=== PATIENT | male | born 1935 | race Caucasian/White ===

== ENCOUNTER 2020-12-29 21:53 | Outpatient (CLI) | payer MEDICARE | END 2020-12-29 21:54 | disposition critical access hospital (66) | LOC: EMS 21:53 | PROVIDERS: ATTEND Emergency Medicine | DX: S09.90XA Unspecified injury of head, initial encounter (principal); W01.198A Fall on same level from slipping, tripping and stumbling with subsequent striking against other object, initial encounter; Y92.10 Unspecified residential institution as the place of occurrence of the external cause | CPT/HCPCS: A0425; A0429 ==

== ENCOUNTER 2020-12-29 22:09 | Emergency (ER) | payer MEDICARE ==
--- NOTE | 2020-12-29 22:26 | ED Physician Documentation ---
PD HPI HEAD INJURY - Stated complaint Stated Complaint: GLF, HIT HEAD, HEADACHE AND NECK PAIN - History obtained from History obtained from: Patient - History of Present Illness Mechanism of head injury: Fell Where head injury occurred: Home Timing - onset: Today Location of injury: Back Quality of pain: Pain Associated symptoms: No: LOC, AMS Symptoms improve with: Rest Symptoms worsen with: Palpation, Movement Contributing factors: No: Anticoagulated Similar symptoms before: Has not had sx before Recently seen: Not recently seen - Additional information Additional information: 85 y/o male in memory care has had a fall and has an abrasion to the back of his scalp. His complaint this evening is ear pain because the cervical collar is pinching his ears. He does not feel ill otherwise. Review of Systems Unable to obtain: Dementia Constitutional: denies: Fever Ears: reports: Ear pain Nose: denies: Congestion Respiratory: denies: Cough GI: denies: Vomiting PD ED PE NORMAL - Vitals Vital signs reviewed: Yes (tachy and hypertensive) - General General: Well developed/nourished, Other (The patient is in a hard collar that is fitting crocked and bothering him. ) - HEENT HEENT: PERRL, EOMI, Other (There is abrasion to the occipital scalp. This does not seem to bother the patient much but touchiing the ear he gives a good yelp. Nothing is wrong with the ear. just the collar. 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 No acute fracture. 2. Multilevel severe spondylosis 3. hypertrophic synovium/pannus and inflammatory/erosive changes involving the posterior aspect of the odontoid process and the right lateral mass of C1. Findings suspicious for rheumatoid arthritis.), EMP read indepedently, See rad report CT head without contrast Radiology: Prelim report reviewed (Impression: One. Moderate atrophy. No acute intracranial findings. 2. High right posterior parietal scalp mild soft tissue swelling without underlying fracture.), EMP read indepedently, See rad report PD MEDICAL DECISION MAKING - ED course Complexity details: reviewed results, re-evaluated patient, considered differential, d/w patient ED course: 85-year-old male with advanced dementia has had a fall and abraded the back of his head. He arrives to the emergency department with a c-collar in place that is poorly fitting and most of his complaints have to do with the c-collar. He is unable to focus on anything else on the exam except the pain in his ear which is being pinched by the collar. This is removed and the patient appears to be able to move his neck. Departure - Departure Disposition: 01 Home, Self Care Clinical Impression: Scalp abrasion, non-infected Dementia with behavioral problem Qualifiers: Dementia type: Alzheimer's Alzheimer's disease onset: unspecified onset Qualified Code(s): G30.9 - Alzheimer's disease, unspecified Cervical strain, acute Qualifiers: Encounter type: initial encounter Qualified Code(s): S16.1XXA - Strain of muscle, fascia and tendon at neck level, initial encounter Condition: Stable Instructions: ED Abrasion, ED Sprain Strain Neck Follow-Up: LEAH JORDAN ARNP [Primary Care Provider] - Discharge Date/Time: 12/30/20 01:58
[2020-12-29 22:34] VITALS: BP 196/121
--- NOTE | 2020-12-30 08:28 | CT Report ---
PROCEDURE: CERVICAL SPINE WO INDICATIONS: polytrauma TECHNIQUE: Noncontrast 3 mm thick sections acquired from the skull base to the T4 level. Sagittal and coronal r eformats were then constructed. For radiation dose reduction, the following was used: automated exp osure control, adjustment of mA and/or kV according to patient size. COMPARISON: None. FINDINGS: Image quality: Excellent. Bones: No fractures or dislocations. Decreased intervertebral disc space and degenerative endplate c hanges are noted throughout cervical spine with straightening of normal cervical lordosis. Bilateral facet hypertrophic changes also seen. Visualized superior ribs are intact. Soft tissues: Prevertebral soft tissues are normal in thickness. No paravertebral hematomas. No ap ical pneumothoraces. Prominent pannus at C1-2 level with posterior odontoid process lytic area and c ortical erosion. Lytic area is seen extending to involve medial aspect of right lateral mass of C1. IMPRESSION: 1. No acute cervical spine fracture or dislocation. 2. Degenerative disc disease throughout cervical spine. 3. Hypertrophic synovium/pannus and inflammatory/erosive changes involving posterior aspect of odonto id process as described above, suspicious for inflammatory arthropathy such as rheumatoid arthritis. No discrepancies from preliminary reading. Reviewed by: Kameron Bedolla MD on 12/30/2020 8:26 AM PST Approved by: Kameron Bedolla MD on 12/30/2020 8:26 AM PST Station ID: [id number]
--- NOTE | 2020-12-30 08:33 | CT Report ---
PROCEDURE: HEAD WO INDICATIONS: polytrauma TECHNIQUE: Noncontrast 4.5 mm thick angled axial sections acquired from the foramen magnum to the vertex. For r adiation dose reduction, the following was used: automated exposure control, adjustment of mA and/or kV according to patient size. COMPARISON: None. FINDINGS: Image quality: Excellent. CSF spaces: Basal cisterns are patent. No extra-axial fluid collections. The ventricles are symmet suyapa in size and shape. Brain: No intracranial bleeds or masses. There is cerebral volume loss for age, with resultant vent ricular and sulcal prominence. There are periventricular and deep white matter chronic small vessel ischemic changes. There is intracranial internal carotid artery atherosclerosis. Skull and face: Mild left posterior high parietal scalp swelling is seen. Calvarium and visualized f acial bones appear intact, without suspicious lesions. Sinuses: Visualized sinuses and mastoids are clear. IMPRESSION: 1. No CT evidence of acute intracranial pathology. 2. No gross acute skull fracture. Mild left posterior high parietal scalp swelling. No significant discrepancies from preliminary reading. Reviewed by: Kameron Bedolla MD on 12/30/2020 8:31 AM PST Approved by: Kameron Bedolla MD on 12/30/2020 8:31 AM PST Station ID: [id number]
== END 2020-12-30 01:58 | disposition home or self-care (01) ==
LOC: SUPCPDRO 22:09 → ED 22:09
DX: S00.01XA Abrasion of scalp, initial encounter (principal); S16.1XXA Strain of muscle, fascia and tendon at neck level, initial encounter; W18.30XA Fall on same level, unspecified, initial encounter; Y92.129 Unspecified place in nursing home as the place of occurrence of the external cause; G30.9 Alzheimer's disease, unspecified; F02.80 Dementia in other diseases classified elsewhere, unspecified severity, without behavioral disturbance, psychotic disturbance, mood disturbance, and anxiety; M50.30 Other cervical disc degeneration, unspecified cervical region
CPT/HCPCS: 99283; 99284

== ENCOUNTER 2020-12-30 02:01 | Outpatient (CLI) | payer MEDICARE | END 2020-12-30 02:02 | disposition home or self-care (01) | LOC: EMS 02:01 | PROVIDERS: ATTEND Emergency Medicine | DX: F03.91 Unspecified dementia, unspecified severity, with behavioral disturbance (principal) | CPT/HCPCS: A0425; A0428 ==

== ENCOUNTER 2021-07-09 16:39 | Outpatient (CLI) | payer MEDICARE, OTHER | END 2021-07-09 16:40 | disposition critical access hospital (66) | LOC: EMS 16:39 | DX: Z04.3 Encounter for examination and observation following other accident (principal); M79.604 Pain in right leg | CPT/HCPCS: A0425; A0429 ==

== ENCOUNTER 2021-07-09 16:56 | Emergency (ER) | payer MEDICARE, OTHER ==
[2021-07-09 17:12] VITALS: BP 147/92
--- NOTE | 2021-07-09 17:19 | ED Physician Documentation ---
PD HPI Fall - Stated complaint Stated Complaint: GLF - Chief complaint Chief Complaint: General - History obtained from History obtained from: Patient, EMS - Additional information Additional information: 85yo demented male from [facility] by EMS fell to knees. Hx afib. Not much hx from patient, but denies pain. Review of Systems Unable to obtain: Dementia PD PAST MEDICAL HISTORY - Past Medical History Psych: Anxiety - Present Medications Home Medications: Ambulatory Orders Medication Instructions Recorded Confirmed Acetaminophen [Tylenol] 650 mg PO TID 07/09/21 07/09/21 Ferrous Sulfate 325 mg PO DAILY 07/09/21 07/09/21 Sertraline [Zoloft] 1 tab PO DAILY 07/09/21 07/09/21 - Allergies Allergies/Adverse Reactions: Allergies Allergy/AdvReac Type Severity Reaction Status Date / Time No Known Drug Allergies Allergy Verified 07/09/21 17:12 - Social History Does the pt smoke?: No Smoking Status: Never smoker Does the pt drink ETOH?: No Does the pt have substance abuse?: No - Immunizations Immunizations are current?: Yes - POLST Patient has POLST: No PD ED PE NORMAL - Vitals Vital signs reviewed: Yes - General General: Other (A/O x 1) - HEENT HEENT: PERRL, EOMI - Neck Neck: Supple, no meningeal sign, No bony TTP - Cardiac Cardiac: RRR, No murmur - Respiratory Respiratory: No respiratory distress, Clear bilaterally - Abdomen Abdomen: Non tender - Back Back: No CVA TTP, No spinal TTP - Derm Derm: Normal color, Warm and dry - Extremities Extremities: Other (Small abrasion right knee, no deformity or tenderness over the hip but does complain of pain when hip is rotated especially externally.) - 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 There is an abrasion on the knee and he does have some pain with hip rotation. X-ray demonstrates a prosthetic in place without evidence of fracture. He was ambulatory without issue after the x-ray. Departure - Departure Disposition: 01 Home, Self Care Clinical Impression: Contusion, hip Qualifiers: Encounter type: initial encounter Laterality: right Qualified Code(s): S70.01XA - Contusion of right hip, initial encounter Knee abrasion Qualifiers: Encounter type: initial encounter Laterality: right Qualified Code(s): S80.211A - Abrasion, right knee, initial encounter Condition: Good Record reviewed to determine appropriate education?: Yes Instructions: ED Contusion Hip Comments: He is of course welcome to return for new or worsening symptoms.
--- NOTE | 2021-07-09 17:56 | XRAY Report ---
PROCEDURE: Hip w/Pelvis 2-3V RT INDICATIONS: hip injury TECHNIQUE: AP pelvis with lateral view(s) of the bilateral hip(s). COMPARISON: None. FINDINGS: Bones: No fractures or dislocations. Pelvic ring appears intact. Bilateral hip replacements are pr esent. No suspicious bony lesions. No lucency surrounding the hardware to suggest loosening. Extensiv e heterotopic bone formation around the hip joint is seen. Cystic changes are noted surrounding the l eft acetabular component. Soft tissues: The visualized bowel gas pattern is normal. No suspicious s oft tissue calcifications. IMPRESSION: 1. 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 No acute abnormality. Reviewed by: Olaf Medrano on 07/09/2021 5:54 PM PDT Approved by: Olaf Medrano on 07/09/2021 5:54 PM PDT Station ID: [id number]
== END 2021-07-09 19:47 | disposition home or self-care (01) ==
LOC: EDUNIT# → ED 16:56
DX: S80.211A Abrasion, right knee, initial encounter (principal); S70.01XA Contusion of right hip, initial encounter; W18.30XA Fall on same level, unspecified, initial encounter; Y92.199 Unspecified place in other specified residential institution as the place of occurrence of the external cause
CPT/HCPCS: 99283

== ENCOUNTER 2021-11-09 15:51 | Outpatient (CLI) | payer MEDICARE, OTHER | END 2021-11-09 15:52 | disposition short-term general hospital (02) | LOC: EMS 15:51 | DX: Z04.3 Encounter for examination and observation following other accident (principal); M25.512 Pain in left shoulder | CPT/HCPCS: A0425; A0429 ==

== ENCOUNTER 2022-02-04 05:14 | Outpatient (CLI) | payer MEDICARE, OTHER | END 2022-02-04 05:15 | disposition critical access hospital (66) | LOC: EMS 05:14 | DX: S01.01XA Laceration without foreign body of scalp, initial encounter (principal); M54.9 Dorsalgia, unspecified; W19.XXXA Unspecified fall, initial encounter; Y92.092 Bedroom in other non-institutional residence as the place of occurrence of the external cause | CPT/HCPCS: A0425; A0429 ==

== ENCOUNTER 2022-02-04 05:32 | Emergency (ER) | payer MEDICARE, OTHER ==
[2022-02-04] MEDS ORDERED: BUPIVACAINE 0.5% PF 10 ML VIAL SUBQ STA (05:53)
--- OUTSIDE RECORDS SUMMARY | 2022-02-04 05:54 | EXTERNAL MEDICAL SUMMARY RPT | Continuity of Care Document ---
:1935 Author Organization [facility] Address [address] [place] [address] Phone Care Team Providers Name Role Phone Fransisco Hanson Unavailable Unavailable Allergies No information. Encounters No information. Medications date description facility 20211109 Acetaminophen 325 MG / Hydrocodone Adore rtrate 5 MG Oral [facility] Tablet Problems date description facility 20211109 Pain in left shoulder [facility] Procedures date description facility 20211109 General Physician [facility] Results No information. Vital Signs date measurement value source 20211109 weight_standard 179.99 lb 20211109 weight_metric 81.64 kg 20211109 temperature_standard 97.3 F 20211109 temperature_metric 36.28 C 20211109 respiration_rate 18 /min 20211109 heart_rate 78 /min 20211109 BP_systolic 145 mm[Hg] 20211109 BP_diastolic 78 mm[Hg]
--- NOTE | 2022-02-04 07:07 | ED Physician Documentation ---
PD HPI HEAD INJURY - Stated complaint Stated Complaint: FELL OUT OF BED, HEAD LAC - Chief complaint Chief Complaint: Trauma Hd/Nk - History obtained from History obtained from: EMS - Additional information Additional information: Patient is an 86-year-old male from a memory care facility with a history significant for dementia who sustained an unwitnessed fall with head injury. Patient was found down on the ground next to his bed with a scalp laceration. He is not on any blood thinners. Patient cannot recall any events regarding his fall and not able to provide any meaningful history. He has had previous ED visits for similar presentations. Review of Systems Unable to obtain: Dementia PD PAST MEDICAL HISTORY - Past Medical History Cardiovascular: Atrial fibrillation Neuro: Dementia Psych: Depression, Anxiety - Present Medications Home Medications: Ambulatory Orders Medication Instructions Recorded Confirmed Acetaminophen [Tylenol] 650 mg PO TID 07/09/21 07/09/21 Ferrous Sulfate 325 mg PO DAILY 07/09/21 07/09/21 Sertraline [Zoloft] 1 tab PO DAILY 07/09/21 07/09/21 - Allergies Allergies/Adverse Reactions: Allergies Allergy/AdvReac Type Severity Reaction Status Date / Time No Known Drug Allergies Allergy Verified 07/09/21 17:12 - Social History Does the pt smoke?: No Smoking Status: Never smoker Does the pt drink ETOH?: No Does the pt have substance abuse?: No - Immunizations Immunizations are current?: Yes - POLST Patient has POLST: No PD ED PE NORMAL - General General: No acute distress, Well developed/nourished. No: Alert and oriented X 3 (Alert and oriented to person and place) - HEENT HEENT: PERRL, EOMI, Other (2.5 cm posterior scalp laceration) - Neck Neck: Supple, no meningeal sign, No bony TTP. 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, No motor deficit, No sensory deficit, Normal speech Eye Opening: Spontaneous Motor: Obeys Commands Verbal: Oriented GCS Score: 15 Results - Vitals Vitals: Vital Signs - 24 hr 02/04/22 02/04/22 02/04/22 05:36 07:43 09:22 Temperature 36.8 C 36.5 C Heart Rate 100 83 75 Respiratory 16 16 18 Rate Blood Pressure 122/70 137/72 H 126/75 O2 Saturation 99 100 97 Oxygen O2 Source Room air Procedures - Laceration (location) SCalp Length in cm: 2.5 Wound type: Linear Neurovascular status: Sensory intact, Motor intact Anesthesia: Marcaine 0.5% Wound preparation: Hibiclens, Irrigated copiously NS Skin layer closure: Elisha (7) Other: Patient tolerated well, No complications, Tetanus UTD (2015) PD MEDICAL DECISION MAKING - ED course ED course: Pt with dementia with unwitnessed fall and injury to scalp. CT head and cspine negative for acute process. Wound cleaned and stapled. Pt ambulatory and appears at baseline with no complaints and stable vital signs. 0759 - Pt ambulated steadily with walker. Departure - Departure Disposition: 01 Home, Self Care Clinical Impression: Fall at custodial Qualifiers: Encounter type: initial encounter Qualified Code(s): W19.XXXA - Unspecified fall, initial encounter Head injury Qualifiers: Encounter type: initial encounter Qualified Code(s): S09.90XA - Unspecified injury of head, initial encounter Scalp laceration Qualifiers: Encounter type: initial encounter Qualified Code(s): S01.01XA - Laceration without foreign body of scalp, initial encounter Condition: Stable Instructions: ED Head Injury Closed, ED Laceration Scalp Stitch Or Stap, ED Prevention Fall Comments: You were evaluated after an unwitnessed fall today. You sustained an injury to the back of your head with a large cut. This cut was repaired with elisha. There were 7 elisha placed and they should stay in for 1 week. You should then follow-up with your primary care doctor next SundayFebruary 10 to have the elisha removed. Please keep this area clean and dry. You can shower and use soap to the area but do not scrub where the wound is. Discharge Date/Time: 02/04/22 10:58
[2022-02-04 09:23] VITALS: BP 126/75
--- NOTE | 2022-02-04 10:24 | CT Report ---
PROCEDURE: HEAD WO INDICATIONS: head injury/dementia TECHNIQUE: Noncontrast 4.5 mm thick angled axial sections acquired from the foramen magnum to the vertex. For r adiation dose reduction, the following was used: automated exposure control, adjustment of mA and/or kV according to patient size. COMPARISON: 12/30/2020. Correlation is made with the accompanying cervical spine CT, 02/04/2022. FINDINGS: Image quality: Excellent. CSF spaces: Basal cisterns are patent. No extra-axial fluid collections. Ventricles are normal in size and shape. Brain: No midline shift. No intracranial masses or hemorrhage. Collins-white matter interface is norm al. Skull and face: Calvarium and visualized facial bones are intact, without suspicious lesions. Sinuses: Visualized sinuses and mastoids are clear. IMPRESSION: Unremarkable intracranial study for age, without acute hemorrhage. Note: No significant discrepancy from the preliminary report. Reviewed by: Luciano Seaman MD on 02/04/2022 9:23 AM MARI[facility] Approved by: Luciano Seaman MD on 02/04/2022 9:23 AM MAR[facility]AMA Station ID: [id number]
--- NOTE | 2022-02-04 10:27 | CT Report ---
PROCEDURE: CERVICAL SPINE WO INDICATIONS: head injury/dementia TECHNIQUE: Noncontrast 3 mm thick sections acquired from the skull base to the T4 level. Sagittal and coronal r eformats were then constructed. For radiation dose reduction, the following was used: automated exp osure control, adjustment of mA and/or kV according to patient size. COMPARISON: 12/30/2020. Correlation is also made with the accompanying head CT, 02/04/2022. FINDINGS: Image quality: Excellent. Bones: No fractures or dislocations. Visualized superior ribs are intact. Relatively prominent degenerative changes are seen throughout. There is focal degenerative change wit h remodeling involving the C1-C2 interface anteriorly. Areas of bony erosion are again seen involving the dens. There is moderate to severe disc space narrowing at C3-C4, C4-C5, C5-C6, C6-C7, and C7-T1. Relatively prominent degenerative changes seen involving the visualized upper thoracic spine. A degree of diffuse osteophytes can be seen at each cervical level. Soft tissues: Prevertebral soft tissues are normal in thickness. No paravertebral hematomas. No ap ical pneumothoraces. IMPRESSION: No acute fracture can be seen. Advanced cervical spine degenerative changes are seen, the degrees of fusion. Areas of bony erosion are seen involving the dens. These correlate with an inflammatory process, such as rheumatoid arthritis. Note: No significant discrepancy from the preliminary report. Reviewed by: Luciano Seaman MD on 02/04/2022 9:26 AM [facility] Approved by: Luciano Seaman MD on 02/04/2022 9:26 AM MARI[facility] Station ID: [id number]
== END 2022-02-04 10:58 | disposition home or self-care (01) ==
LOC: EDUNIT# → EDBD → ED 05:32
DX: S01.01XA Laceration without foreign body of scalp, initial encounter (principal); S09.90XA Unspecified injury of head, initial encounter; W19.XXXA Unspecified fall, initial encounter; Y92.193 Bedroom in other specified residential institution as the place of occurrence of the external cause; F03.90 Unspecified dementia, unspecified severity, without behavioral disturbance, psychotic disturbance, mood disturbance, and anxiety
CPT/HCPCS: 12001; 99284

== ENCOUNTER 2022-02-04 10:53 | Outpatient (CLI) | payer MEDICARE, OTHER | END 2022-02-04 10:54 | disposition home or self-care (01) | LOC: EMS 10:53 | PROVIDERS: ATTEND Emergency Medicine | DX: R41.0 Disorientation, unspecified (principal); S01.01XA Laceration without foreign body of scalp, initial encounter; W19.XXXA Unspecified fall, initial encounter | CPT/HCPCS: A0425; A0428 ==

== ENCOUNTER 2022-02-06 17:28 | Outpatient (CLI) | payer MEDICARE, OTHER | END 2022-02-06 17:29 | disposition critical access hospital (66) | LOC: EMS 17:28 | DX: R41.0 Disorientation, unspecified (principal); M25.562 Pain in left knee | CPT/HCPCS: A0425; A0429 ==

== ENCOUNTER 2022-02-06 17:47 | Emergency (ER) | payer MEDICARE, OTHER ==
--- OUTSIDE RECORDS SUMMARY | 2022-02-06 18:12 | EXTERNAL MEDICAL SUMMARY RPT | Continuity of Care Document ---
:1935 Author Organization [facility] Address [address] [place] [address] Phone Care Team Providers Name Role Phone Valentin Unavailable Unavailable Allergies No information. Encounters No information. Medications date description facility 20211109 Acetaminophen 325 MG / Hydrocodone Adore rtrate 5 MG Oral [facility] Tablet Problems date description facility 20211109 Pain in left shoulder [facility] Procedures date description facility 20211109 General Physician [facility] Results No information. Vital Signs date measurement value source 20211109 weight_standard 179.99 lb 20211109 weight_metric 81.64 kg 20211109 temperature_standard 97.3 F 20211109 temperature_metric 36.28 C 20211109 respiration_rate 18 /min 20211109 heart_rate 78 /min 20211109 BP_systolic 145 mm[Hg] 20211109 BP_diastolic 78 mm[Hg]
--- NOTE | 2022-02-06 18:16 | ED Physician Documentation ---
History of Present Illness - Stated complaint Stated Complaint: AMS - Chief complaint Chief Complaint: Neuro - History obtained from History obtained from: EMS - History of Present Illness Timing: Today Pain level max: 0 Pain level now: 0 - Additonal information Additional information: 86-year-old male, significant dementia presents with "more altered than usual" mental status. EMS is unable to say how he is more altered than usual. The patient has no complaints. Reportedly there was a fall on Sunday. No fevers reported. No vomiting. No pain reported. Patient unable to give any history Review of Systems Unable to obtain: Dementia PD PAST MEDICAL HISTORY - Past Medical History Cardiovascular: Atrial fibrillation Neuro: Dementia Psych: Depression, Anxiety - Present Medications Home Medications: Ambulatory Orders Medication Instructions Recorded Confirmed Acetaminophen [Tylenol] 650 mg PO TID 07/09/21 07/09/21 Ferrous Sulfate 325 mg PO DAILY 07/09/21 07/09/21 Sertraline [Zoloft] 1 tab PO DAILY 07/09/21 07/09/21 cephALEXin [Keflex] 500 mg PO Q6H #20 cap 02/06/22 - Allergies Allergies/Adverse Reactions: Allergies Allergy/AdvReac Type Severity Reaction Status Date / Time No Known Drug Allergies Allergy Verified 02/06/22 17:54 - Social History Does the pt smoke?: No Smoking Status: Never smoker Does the pt drink ETOH?: No Does the pt have substance abuse?: No - Immunizations Immunizations are current?: Yes - POLST Patient has POLST: No PD ED PE NORMAL - Vitals Vital signs reviewed: Yes - General General: No acute distress, Well developed/nourished, Other (alert, pleasant, disoriented to place and time.) - HEENT HEENT: Atraumatic, PERRL, Moist mucous membranes - Neck Neck: Supple, no meningeal sign - Cardiac Cardiac: RRR - Respiratory Respiratory: No respiratory distress, Clear bilaterally - Abdomen Abdomen: Soft, Non tender, Non distended - Derm Derm: Warm and dry - Extremities Extremities: Normal ROM s pain - Neuro Neuro: Other (alert) Results - Vitals Vitals: Vital Signs - 24 hr 02/06/22 02/06/22 02/06/22 17:54 17:58 19:58 Temperature 36.6 C 36.6 C 36.5 C Heart Rate 88 88 88 Respiratory 16 16 16 Rate Blood Pressure 118/79 118/79 120/80 O2 Saturation 96 96 96 02/06/22 20:51 Temperature 36.4 C L Heart Rate 109 H Respiratory 18 Rate Blood Pressure 117/78 O2 Saturation 92 Oxygen O2 Source Room air - Labs Labs: Laboratory Tests 02/06/22 02/06/22 02/06/22 18:12 18:12 19:39 WBC 12.1 H RBC 3.47 L Hgb 10.9 L Hct 33.5 L MCV 96.5 H MCH 31.4 H MCHC 32.5 RDW 14.4 Plt Count 89 L MPV 11.2 Neut # (Auto) Not Reportable Lymph # (Auto) Not Reportable [place] # (Auto) Not Reportable Eos # (Auto) Not Reportable Baso # (Auto) Not Reportable Absolute Nucleated RBC Not Reportable Total Counted 100 Band Neuts % (Manual) 5 Abnorm Lymph % (Manual) 0 Nucleated RBC % Not Reportable Neutrophils # (Manual) 10.8 H Lymphocytes # (Manual) 0.7 L Monocytes # (Manual) 0.6 Eosinophils # (Manual) 0.0 Basophils # (Manual) 0.0 Differential Comment MANUAL DIFFERENTIAL WBC Morphology NORMAL APPEARANCE Platelet Estimate DECREASED (<130,000) Platelet Morphology NORMAL APPEARANCE RBC Morph Micro Appear NORMAL APPEARANCE Sodium 138 Potassium 3.6 Chloride 101 Carbon Dioxide 24 Anion Gap 13.0 BUN 52 H Creatinine 1.9 H Estimated GFR (MDRD) 34 L Glucose 146 H Calcium 8.9 Total Bilirubin 1.6 H AST 89 H ALT 61 H Alkaline Phosphatase 111 Total Protein 7.3 Albumin 3.7 Globulin 3.6 Albumin/Globulin Ratio 1.0 Lipase 30 Urine Color DARK YELLOW Urine Clarity HAZY Urine pH 6.0 Ur Specific [place] 1.025 Urine Protein 100 H Urine Glucose (UA) NEGATIVE Urine Ketones TRACE Urine Occult Blood MODERATE H Urine Nitrite POSITIVE H Urine Bilirubin NEGATIVE Urine Urobilinogen 2 H Ur Leukocyte Esterase NEGATIVE Urine RBC 6-10 H Urine WBC 0-3 Ur Squamous Epith Cells FEW Squamous Amorphous Sediment Few Urine Bacteria Rare Ur Microscopic Review INDICATED Urine Culture Comments INDICATED - Rads (name of study) head Ct Radiology: Final report received, EMP read contemporaneously, See rad report (no acute abnormalities) PD MEDICAL DECISION MAKING - ED course Complexity details: reviewed results, re-evaluated patient, considered differential ED course: No acute findings on head CT. He does have some renal insufficiency, thrombocytopenia and what appears to be a UTI. Unclear what his normal baseline lab values are. He is unable to give any history. We have no baseline laboratory testing on him. We will treat for UTI. He was also given IV fluids. I will follow-up with his doctor for further care. This document was made in part using voice recognition software. While efforts are made to proofread this document, sound alike and grammatical errors may occur. Departure - Departure Disposition: Home, Self Care Clinical Impression: Dehydration Dementia Qualifiers: Dementia type: unspecified type Dementia behavioral disturbance: without behavioral disturbance Qualified Code(s): F03.90 - Unspecified dementia without behavioral disturbance UTI (urinary tract infection) Qualifiers: Urinary tract infection type: acute cystitis Hematuria presence: without hematuria Qualified Code(s): N30.00 - Acute cystitis without hematuria Condition: Good Instructions: ED Dehydration, ED UTI Cystitis Male Follow-Up: your,doctor in 3 days [Other] Prescriptions: cephALEXin [Keflex] 500 mg PO Q6H #20 cap Comments: Your prescription was sent to [facility] in [place]. Take all anitbiotics until gone. return if you worsen. You should follow up with your doctor to recheck your labs as well. You have a mild thrombocytopenia mild uremia, renal insufficiency, mild elevation of your liver function tests. We do not have any old lab tests on you, so do not know your baseline values. Your head CT does not show any acute abnormalities today. Discharge Date/Time: 02/06/22 21:00
[2022-02-06 18:19] LABS: BASOPHILS % (AUTO) 0.2 %; HCT - HEMATOCRIT 33.5 % (42.0-52.0); HGB - HEMOGLOBIN 10.9 g/dL (14.0-18.0); LYMPHOCYTES % (AUTO) 4.5 %; MEAN CORPUSCULAR HEMOGLOBIN 31.4 pg (27.0-31.0); MEAN CORPUSCULAR HGB CONC 32.5 g/dL (32.0-36.0); MEAN CORPUSCULAR VOLUME 96.5 fL (80.0-94.0); MEAN PLATELET VOLUME 11.2 fL (7.4-11.4); MONOCYTES % (AUTO) 7.8 %; NEUTROPHILS % (AUTO) 85.9 %; PLT - PLATELET COUNT 89 10^3/uL (130-450); RED BLOOD COUNT 3.47 10^6/uL (4.70-6.10); RED CELL DISTRIBUTION WIDTH 14.4 % (12.0-15.0); WHITE BLOOD COUNT 12.1 x10^3/uL (4.8-10.8)
[2022-02-06 18:22] LABS: ABNORMAL LYMPHS % (MANUAL) 0 %
[2022-02-06 18:32] LABS: ALBUMIN 3.7 g/dL (3.2-5.5); BILIRUBIN,TOTAL 1.6 mg/dL (0.2-1.0); CALCIUM 8.9 mg/dL (8.5-10.3); CREATININE 1.9 mg/dL (0.6-1.2); POTASSIUM 3.6 mmol/L (3.5-5.0); TOTAL PROTEIN 7.3 g/dL (6.7-8.2)
[2022-02-06 18:44] LABS: BAND NEUTROPHILS % (MANUAL) 5 %; LYMPHOCYTES # (MANUAL) 0.7 10^3/uL (1.5-3.5); LYMPHOCYTES % (MANUAL) 6 %; MONOCYTES # (MANUAL) 0.6 10^3/uL (0.0-1.0); NEUTROPHILS # (MANUAL) 10.8 10^3/uL (1.5-6.6)
[2022-02-06 18:45] LABS: DIFFERENTIAL COMMENT MANUAL DIFFERENTIAL; PLATELET ESTIMATE, MANUAL DECREASED (<130,000) (NORMAL); PLATELET MORPHOLOGY NORMAL APPEARANCE (NORMAL); RBC MORPHOLOGY (MULTIPLE) NORMAL APPEARANCE (NORMAL); WBC MORPHOLOGY (MULTIPLE) NORMAL APPEARANCE (NORMAL)
[2022-02-06] MEDS ORDERED: SODIUM CHLORIDE 0.9% 1,000 ML IV STA (18:49)
--- NOTE | 2022-02-06 18:58 | CT Report ---
PROCEDURE: HEAD WO INDICATIONS: fall, head injury, AMS TECHNIQUE: Noncontrast 4.5 mm thick angled axial sections acquired from the foramen magnum to the vertex. For r adiation dose reduction, the following was used: automated exposure control, adjustment of mA and/or kV according to patient size. COMPARISON: CT head 02/04/2022. FINDINGS: Image quality: Excellent. CSF spaces: Basal cisterns are patent. No extra-axial fluid collections. Ventricles are age-approp riate in size and shape. Brain: No midline shift. No intracranial masses or hemorrhage. The densities in the subcortical and periventricular white matter are consistent with chronic microvascular ischemic changes. There is mi ld age-related cerebral and cerebellar volume loss. Skull and face: Skin elisha are seen in the posterior scalp. Calvarium and visualized facial bones are intact, without suspicious lesions. Sinuses: Visualized sinuses and mastoids are clear. IMPRESSION: No acute intracranial abnormality. Reviewed by: Eddie Arevalo MD on 02/06/2022 6:56 PM PDT Approved by: Eddie Arevalo MD on 02/06/2022 6:56 PM PDT Station ID: [id number]
[2022-02-06 19:52] LABS: BILIRUBIN,URINE NEGATIVE (NEGATIVE); GLUCOSE, URINE (UA) NEGATIVE (NEGATIVE); KETONES,URINE (UA) TRACE mg/dL (NEGATIVE); LEUKOCYTE ESTERASE, URINE NEGATIVE (NEGATIVE); NITRITE,URINE POSITIVE (NEGATIVE); OCCULT BLOOD,URINE MODERATE (NEGATIVE); PROTEIN,URINE 100 mg/dL (NEGATIVE); UROBILINOGEN,URINE 2 E.U./dL (NORMAL)
[2022-02-06 19:53] LABS: CLARITY,URINE HAZY (CLEAR)
[2022-02-06 20:07] LABS: BACTERIA,URINE Rare /HPF (None Seen); SQUAMOUS EPITHELIAL CELL,UR FEW Squamous (<= Few); WBC,URINE 0-3 /HPF (0-3)
[2022-02-06 20:08] LABS: AMORPHOUS SEDIMENT,UR Few /LPF
[2022-02-06] MEDS ORDERED: LIDOCAINE 1% 2 ML VIAL MC ONE (20:11)
[2022-02-06] MEDS ORDERED: cefTRIAXone 1 GM VIAL IM STA (20:11)
[2022-02-06] MEDS ORDERED: cefTRIAXone 1 GM VIAL IVP STA (20:14)
[2022-02-06 20:57] VITALS: BP 117/78
== END 2022-02-06 21:00 | disposition home or self-care (01) ==
LOC: EDUNIT# → ED 17:47
DX: E86.0 Dehydration (principal); N30.00 Acute cystitis without hematuria; F03.90 Unspecified dementia, unspecified severity, without behavioral disturbance, psychotic disturbance, mood disturbance, and anxiety; I48.91 Unspecified atrial fibrillation
CPT/HCPCS: 36415; 51701; 80053; 81001; 81003; 83690; 85025; 87086; 87181; 99281

== ENCOUNTER 2022-02-06 21:13 | Outpatient (CLI) | payer MEDICARE, OTHER | END 2022-02-06 21:14 | disposition home or self-care (01) | LOC: EMS 21:13 | PROVIDERS: ATTEND Emergency Medicine | DX: R41.0 Disorientation, unspecified (principal); N39.0 Urinary tract infection, site not specified; Z74.01 Bed confinement status | CPT/HCPCS: A0425; A0428 ==

== ENCOUNTER 2022-02-08 17:18 | Outpatient (CLI) | payer MEDICARE, OTHER | END 2022-02-08 17:19 | disposition critical access hospital (66) | LOC: EMS 17:18 | DX: R53.83 Other fatigue (principal); R41.82 Altered mental status, unspecified; R50.9 Fever, unspecified; R00.0 Tachycardia, unspecified | CPT/HCPCS: A0425; A0427 ==

== ENCOUNTER 2022-02-08 17:37 | Inpatient (IN) | payer MEDICARE, OTHER ==
[2022-02-08] MEDS ORDERED: diltiaZEM INJ 5 MG/ML VIAL IVP STA ×3 (17:53→19:04)
[2022-02-08] MEDS ORDERED: SODIUM CHLORIDE 0.9% 1,000 ML IV STA (17:53)
--- NOTE | 2022-02-08 17:53 | ED Physician Documentation ---
History of Present Illness - Stated complaint Stated Complaint: AMS - Chief complaint Chief Complaint: General - Additonal information Additional information: 86-year-old male who is a resident at [facility] is transported to the emergency department for evaluation of fever, altered mental status. Has been seen recently in this emergency department for similar diagnosed with a urinary tract infection and started on cephalexin. His family told EMS that though he has a distant history of dementia he is more altered than normal. On presentation this gentleman opens his eyes only to painful stimuli moans and briefly localizes pain. Mild temperature elevation on presentation 99.1 though EMS reports 100.3 at the scene. Patient does present with A. fib RVR rate of 140. Rhythm does appear wide Pt does have with him a living will dated from 2003, indicating limited measures in the setting or irreversible medical conditions. however no formal POLST in in place Review of Systems Unable to obtain: Dementia PD PAST MEDICAL HISTORY - Past Medical History Cardiovascular: Atrial fibrillation Neuro: Dementia Psych: Depression, Anxiety - Present Medications Home Medications: Ambulatory Orders Medication Instructions Recorded Confirmed Acetaminophen [Tylenol] 650 mg PO TID 07/09/21 02/08/22 Ferrous Sulfate 325 mg PO DAILY 07/09/21 02/08/22 Sertraline [Zoloft] 1 tab PO DAILY 07/09/21 02/08/22 cephALEXin [Keflex] 500 mg PO Q6H #20 cap 02/06/22 02/08/22 Ascorbic Acid [Vitamin C] 1,000 mg PO DAILY 02/08/22 02/08/22 Multivitamin 1 tab PO DAILY 02/08/22 02/08/22 - Allergies Allergies/Adverse Reactions: Allergies Allergy/AdvReac Type Severity Reaction Status Date / Time No Known Drug Allergies Allergy Verified 02/06/22 17:54 - Social History Does the pt smoke?: No Smoking Status: Never smoker Does the pt drink ETOH?: No Does the pt have substance abuse?: No - Immunizations Immunizations are current?: Yes - POLST Patient has POLST: No PD ED PE EXPANDED - General General: Disheveled, poorly kept - Cardiac Cardiac: Tachy, Irregularly irregular, Murmur Present, Radial strong equal, Pedal strong equal, Cap refill < 2 sec - Respiratory Respiratory: Clear to ausultation markos - Abdomen Abdomen: Normal Bowel sounds, Tender to palpation, Generalized/diffuse - Derm Derm: Normal color, Warm and dry. No: Rash - Extremities Extremities: Normal, Pedal Pulses Present. No: Deformity, Tenderness - Neuro Neuro: Alert and Oriented X 3, CNII-XII intact - GCS Eye Opening: To Voice Motor: Localizes to Pain Verbal: Inappropriate Total: 11 Results - Vitals Vitals: Vital Signs - 24 hr 02/08/22 02/08/22 02/08/22 17:44 17:54 18:13 Temperature 37.3 C 37.3 C Heart Rate 69 114 H 125 H Respiratory 18 30 H 29 H Rate Blood Pressure 125/69 125/69 106/62 O2 Saturation 94 94 93 02/08/22 02/08/22 02/08/22 18:17 18:30 18:33 Temperature Heart Rate 125 H Respiratory 28 H Rate Blood Pressure O2 Saturation 89 L 98 02/08/22 02/08/22 02/08/22 19:00 19:30 20:00 Temperature Heart Rate 104 H 104 H 120 H Respiratory 29 H 23 30 H Rate Blood Pressure 121/71 136/74 H 124/83 H O2 Saturation 98 96 97 02/08/22 02/08/22 20:30 21:00 Temperature Heart Rate 104 H 127 H Respiratory 29 H 26 H Rate Blood Pressure 127/77 133/80 H O2 Saturation 97 97 Oxygen O2 Source Nasal cannula - EKG (time done) 1745 Rate: Rate (enter#) (143) Rhythm: Atrial fibrillation [place]: Normal QRS: No: Low voltage (wide complex) Compare to prior EKG: Old EKG unavailable Computer interpretation: Agree with computer (afib; with widecomplex) 1938 Rate: Rate (enter#) (103) Rhythm: Atrial fibrillation Intervals: RBBB QRS: Low voltage Ischemia: Q waves (inferior) Compare to prior EKG: Changed from prior EKG Computer interpretation: Agree with computer - Labs Labs: Laboratory Tests 02/08/22 02/08/22 02/08/22 17:51 17:51 17:51 WBC 16.7 H RBC 3.55 L Hgb 11.2 L Hct 33.1 L MCV 93.2 MCH 31.5 H MCHC 33.8 RDW 14.4 Plt Count 93 L MPV 13.4 H Neut # (Auto) 14.4 H Lymph # (Auto) 0.8 L [place] # (Auto) 1.3 H Eos # (Auto) 0.0 Baso # (Auto) 0.0 Absolute Nucleated RBC 0.00 Nucleated RBC % 0.0 Sodium 152 H Potassium 3.2 L Chloride 114 H Carbon Dioxide 24 Anion Gap 14.0 H BUN 61 H Creatinine 1.3 H Estimated GFR (MDRD) 52 L Glucose 146 H Lactic Acid 1.4 Calcium 8.4 L Total Bilirubin 1.8 H AST 43 H ALT 39 Alkaline Phosphatase 104 Troponin I High Sens Total Protein 6.7 Albumin 2.8 L Globulin 3.9 Albumin/Globulin Ratio 0.7 L Urine Color Urine Clarity Urine pH Ur Specific [place] Urine Protein Urine Glucose (UA) Urine Ketones Urine Occult Blood Urine Nitrite Urine Bilirubin Urine Urobilinogen Ur Leukocyte Esterase Urine RBC Urine WBC Urine WBC Clumps Ur Squamous Epith Cells Amorphous Sediment Urine Bacteria Urine Casts Urine Culture Comments 02/08/22 02/08/22 02/08/22 17:51 18:05 20:27 WBC RBC Hgb Hct MCV MCH MCHC RDW Plt Count MPV Neut # (Auto) Lymph # (Auto) [place] # (Auto) Eos # (Auto) Baso # (Auto) Absolute Nucleated RBC Nucleated RBC % Sodium Potassium Chloride Carbon Dioxide Anion Gap BUN Creatinine Estimated GFR (MDRD) Glucose Lactic Acid Calcium Total Bilirubin AST ALT Alkaline Phosphatase Troponin I High Sens 3055.1 H* 3383.7 H* Total Protein Albumin Globulin Albumin/Globulin Ratio Urine Color YELLOW Urine Clarity HAZY Urine pH 6.0 Ur Specific [place] 1.020 Urine Protein 100 H Urine Glucose (UA) NEGATIVE Urine Ketones NEGATIVE Urine Occult Blood MODERATE H Urine Nitrite NEGATIVE Urine Bilirubin NEGATIVE Urine Urobilinogen 1 (NORMAL) Ur Leukocyte Esterase SMALL H Urine RBC 6-10 H Urine WBC >25 H Urine WBC Clumps PRESENT Ur Squamous Epith Cells FEW Squamous Amorphous Sediment Few Urine Bacteria Few Urine Casts 0-2 WBC Casts Urine Culture Comments INDICATED - Rads (name of study) chest xr Radiology: Final report received (Bibasilar alveolar opacities may be infectious or edema. Indistinct slightly prominent central vessels. Postsurgical changes in the heart.) CT head Radiology: Final report received (Minimal hypodensity along the cortex of the right frontal lobe which is likely artifact given patient motion but a small acute hemorrhage is not completely excluded. Consider short interval follow- up.) CT abd Radiology: Final report received (Bibasilar alveolar opacities and small effusions with a differential diagnosis of pneumonia or less likely pulmonary edema. Distended gallbladder may be secondary to fasting state no secondary signs of acute cholecystitis) PD MEDICAL DECISION MAKING - ED course Complexity details: reviewed old records, reviewed results, re-evaluated patient, considered differential, d/w patient, d/w family ED course: 86-year-old male who resides at [facility] and has a history of dementia as well as atrial fibrillation presents the emergency department for altered mental status, increased confusion low-grade temperature elevations. Seen recently in this emergency department for altered mental status and found to have a urinary tract infection. Per the staff at [facility] patient has eaten or drank very little over the last few days. On presentation he presents with A. fib RVR and a wide-complex rhythm heart rate in the 140s. Patient had received diltiazem initially 5 mg followed by 2 subsequent doses of 10 mg each now with successful reduction in heart rate to the 90s and 110s. The initial wide-complex appears narrowed though he remains in atrial fibrillation. Once heart rate control was achieved and the rhythm did narrow but he does have a right bundle branch block. There are no previous EKGs prior to today for comparison. Unfortunately screening labs are most significant for moderate leukocytosis with a white count of 16,000. His lactate is negative. Blood cultures are pending. Urine cath is consistent with an infection. 1 g of ceftriaxone was given here in the emergency department. He did receive initially 1 L of crystalloid normal saline but screening labs showed a significant dehydration with an elevated BUN, creatinine as well as a sodium. This was then repleted with an additional liter of lactated Ringer's. He initially had a troponin of just over 3000. Given his atrial fib this is most consistent with an NSTEMI. Repeat trop 3300. Initially we would consider treatment of the NSTEMI with IV heparin however the radiologist does inform me that there is a possibility that the CT scan shows a small right frontal intraparenchymal hemorrhage though this could also be motion artifact. He did recommend Repeat CT imaging at a 4-hour interval. Until such time we will continue to manage the NSTEMI with rate control. This gentleman has advanced dementia and significant dehydration, NSTEMI, altered mental status, urinary tract infection, with A. fib with RVR. 1840: I have spoken with the patient's son Abel who is also his medical POA who reports that his father has had declining health over the last 18 months. He has been found understand that over the last few days he has had very little to eat or drink. He is not certain of what his father's advanced wishes would be in terms of Resuscitative events. I described that his father was doing very poorly and certainly having an NSTEMI event given the tachycardia and elevated troponin. He is asked for a little bit of time to call his family to determine if we will continue to be aggressive in managing his father's health. 1919: Patient's son Abel who is the medical power of personal injury attorney has called me back. After careful discussion with the patient's and his stepbrothers they have elected that the patient should be a DNR, no intubation, no CPR. They would like the patient admitted to the hospital for IV hydration and antibiotics for any infections that are found. With regards to the obvious NSTEMI he is okay with medical management including medications for rate control but would not want cardioversion or transfer to an outlying facility for further management of his heart condition 2114: I have discussed this case at length with our admitting hospitalist Dr. Ng. He has also spoken with the patient's son Abel. At this point it appears that the family is interested in transitioning the patient to hospice care though that decision will be made over the next few days in the interim he will be admitted to the hospital for further treatment of his infection. The family indicated that they did not wish for IV hydration. A repeat CT scan is pending for 20- and Dr. Ng is aware. - Critical Care Time(min): 30 Time Includes: Direct patient care, Reassess patient, Document care, Family consult for tx dec Data interpretation: Labs, CXR, Prior EKG Departure - Departure Disposition: 66 [facility] DC/Xfer Clinical Impression: NSTEMI (non-ST elevated myocardial infarction), Atrial fibrillation with RVR, Dehydration, Hypernatremia UTI (urinary tract infection) Qualifiers: Urinary tract infection type: acute cystitis Hematuria presence: without hematuria Qualified Code(s): N30.00 - Acute cystitis without hematuria AMS (altered mental status) Qualifiers: Altered mental status type: coma Coma depth: Salbador coma 9-12 Coma timing: in the field (EMT or ambulance) Qualified Code(s): R40.2421 - Salbador coma scale score 9-12, in the field [EMT or ambulance]
--- OUTSIDE RECORDS SUMMARY | 2022-02-08 17:55 | EXTERNAL MEDICAL SUMMARY RPT | Continuity of Care Document ---
:1935 Author Organization [place] Address [address] [phone] Phone Allergies No information. Encounters No information. Medications No information. Problems date description facility [id number] Pain in left [facility] Results No information.
[2022-02-08 18:14] LABS: BILIRUBIN,URINE NEGATIVE (NEGATIVE); GLUCOSE, URINE (UA) NEGATIVE (NEGATIVE); KETONES,URINE (UA) NEGATIVE (NEGATIVE); LEUKOCYTE ESTERASE, URINE SMALL (NEGATIVE); NITRITE,URINE NEGATIVE (NEGATIVE); OCCULT BLOOD,URINE MODERATE (NEGATIVE); PROTEIN,URINE 100 mg/dL (NEGATIVE); UROBILINOGEN,URINE 1 (NORMAL) E.U./dL (NORMAL)
[2022-02-08 18:15] LABS: CLARITY,URINE HAZY (CLEAR)
[2022-02-08 18:16] LABS: ALBUMIN 2.8 g/dL (3.2-5.5); ALBUMIN/GLOBULIN RATIO 0.7 (1.0-2.2); BILIRUBIN,TOTAL 1.8 mg/dL (0.2-1.0); CALCIUM 8.4 mg/dL (8.5-10.3); CREATININE 1.3 mg/dL (0.6-1.2); POTASSIUM 3.2 mmol/L (3.5-5.0); TOTAL PROTEIN 6.7 g/dL (6.7-8.2)
[2022-02-08] MEDS ORDERED: LACTATED RINGERS 1,000 ML IV STA (18:17)
[2022-02-08 18:20] LABS: BASOPHILS % (AUTO) 0.2 %; HCT - HEMATOCRIT 33.1 % (42.0-52.0); HGB - HEMOGLOBIN 11.2 g/dL (14.0-18.0); LYMPHOCYTES # (AUTO) 0.8 10^3/uL (1.5-3.5); LYMPHOCYTES % (AUTO) 4.7 %; MEAN CORPUSCULAR HEMOGLOBIN 31.5 pg (27.0-31.0); MEAN CORPUSCULAR HGB CONC 33.8 g/dL (32.0-36.0); MEAN CORPUSCULAR VOLUME 93.2 fL (80.0-94.0); MEAN PLATELET VOLUME 13.4 fL (7.4-11.4); MONOCYTES # (AUTO) 1.3 10^3/uL (0.0-1.0); MONOCYTES % (AUTO) 7.8 %; NEUTROPHILS # (AUTO) 14.4 10^3/uL (1.5-6.6); NEUTROPHILS % (AUTO) 86.6 %; PLT - PLATELET COUNT 93 10^3/uL (130-450); RED BLOOD COUNT 3.55 10^6/uL (4.70-6.10); RED CELL DISTRIBUTION WIDTH 14.4 % (12.0-15.0); WHITE BLOOD COUNT 16.7 x10^3/uL (4.8-10.8)
[2022-02-08] MEDS ORDERED: IOVERSOL 320 100 ML VIAL IVP ONE ×2 (18:33→19:11)
[2022-02-08 18:34] LABS: AMORPHOUS SEDIMENT,UR Few /LPF; BACTERIA,URINE Few /HPF (None Seen); CASTS, URINE 0-2 WBC Casts /LPF; SQUAMOUS EPITHELIAL CELL,UR FEW Squamous (<= Few); WBC CLUMPS,URINE PRESENT; WBC,URINE >25 /HPF (0-3)
--- NOTE | 2022-02-08 18:51 | XRAY Report ---
PROCEDURE: Chest 1 View X-Ray INDICATIONS: chest pain TECHNIQUE: One view of the chest was acquired. COMPARISON: None FINDINGS: Surgical changes and devices: Median sternotomy change.. Lungs and pleura: Bilateral lower lung alveolar opacities, right greater than left. Mediastinum: Mild cardiomegaly. Aortic valvuloplasty. Mildly indistinct central vessels. Bones and chest wall: Right shoulder arthroplasty change. Possible deformity of prior left humeral h ead/neck fracture. No suspicious bony lesions. Overlying soft tissues appear unremarkable. IMPRESSION: 1. Bibasilar alveolar opacities may be infection or edema. 2. Indistinct and slightly prominent central vessels. 3. Postsurgical changes in the heart. Reviewed by: Francy Krishnan MD on 02/08/2022 6:50 PM PDT Approved by: Francy Krishnan MD on 02/08/2022 6:50 PM PDT Station ID: [id number]
[2022-02-08] MEDS ORDERED: cefTRIAXone 1 GM in SODIUM CHLORIDE 0.9% MINIBAG 100 ML IV STA (19:01)
[2022-02-08] MEDS ORDERED: cefTRIAXone 1 GM VIAL ONE ×2 (19:19→19:22)
--- NOTE | 2022-02-08 19:48 | CT Report ---
PROCEDURE: HEAD WO INDICATIONS: ams TECHNIQUE: Noncontrast 4.5 mm thick angled axial sections acquired from the foramen magnum to the vertex. For r adiation dose reduction, the following was used: automated exposure control, adjustment of mA and/or kV according to patient size. COMPARISON: 02/06/22 and 02/04/2022. FINDINGS: Image quality: Study degraded by moderate patient motion artifact. CSF spaces: Basal cisterns are patent. No extra-axial fluid collections. Ventricles are normal in size and shape. Brain: No midline shift. No intracranial masses. There is minimal hyperdensity along the right fro ntal cortex cortex (image 21/series 17 and image 21/series 14). This is likely artifactual given abisai ent motion artifact. No mass effect. Collins-white matter interface is normal. There cerebral volume los s for age with resultant ventricular and sulcal prominence. There are periventricular and deep white matter chronic small vessel ischemic changes. Atherosclerotic calcifications are noted in the intracr anial segments of the bilateral internal carotid arteries. Skull and face: Calvarium and visualized facial bones are intact, without suspicious lesions. Sinuses: Visualized sinuses and mastoids are clear. IMPRESSION: 1. Minimal hyperdensity along the cortex of the right frontal lobe which is favored to represent power fact given moderate patient motion on this examination. However, small acute hemorrhage not completel y excluded. Consider short interval follow-up CT to confirm. 2. Otherwise, stable age-related senescent changes and sequela of chronic small vessel ischemic disea se. 3. No acute calvarial fractures. Findings discussed with Dr. Samuels at 1944 hrs Reviewed by: Mino Dejesus MD on 02/08/2022 7:47 PM PDT Approved by: Mino Dejesus MD on 02/08/2022 7:47 PM PDT Station ID: [id number]
--- NOTE | 2022-02-08 19:59 | CT Report ---
PROCEDURE: Abdomen/Pelvis W INDICATIONS: ams; fever CONTRAST: IV CONTRAST: Optiray 320 ml: 100 PO CONTRAST: *NO PO CONTRAST TECHNIQUE: After the administration of IV contrast, 5 mm thick sections acquired from the diaphragms to the symp hysis. 5 mm thick coronal and sagittal reformats were acquired. For radiation dose reduction, the f ollowing was used: automated exposure control, adjustment of mA and/or kV according to patient size. COMPARISON: None. FINDINGS: Image quality: Adequate.. ABDOMEN: Lung bases: Small patchy bilateral alveolar opacities and bilateral pleural effusions. Respiratory mo tion present at the lung bases. Moderate cardiomegaly and cardiac assist device present. Solid organs: Given respiratory motion and suboptimal patient positioning, the liver, adrenal glands, spleen, pancreas, and kidneys are grossly normal. No obvious hydronephrosis or obstructive calcifica tion. The gallbladder is distended but no calcifications are visible. The biliary tree is nondilated. Peritoneum and bowel: The stomach is decompressed. No suspicious dilated small bowel loop. There is n ormal air and stool in colon. No free pelvic fluid or obvious free intraperitoneal air. Nodes and vessels: No retroperitoneal or mesenteric adenopathy by size criteria. Aorta and inferior vena cava are normal in size. Miscellaneous: No ventral hernias. PELVIS: Genitourinary: The bladder is partially obscured mild bilateral hypertrophic plasty beam hardening a rtifact. Prostate gland is slightly enlarged. Bladder wall thickness is normal. Miscellaneous: No inguinal hernias or adenopathy. Bones: No suspicious bony lesions. Multilevel disc and endplate change throughout the spine. Grade 1 anterolisthesis L4 on 5. Bilateral hip arthroplasties and adjacent dystrophic calcification, particu larly on the left. IMPRESSION: 1. Bibasilar alveolar opacities and small effusions with differential diagnosis of pneumonia or less likely pulmonary edema. 2. Distended gallbladder may be secondary to patient's fasting state. No secondary signs of acute cho lecystitis. 3. Given technical limitations, no other abnormalities to suggest etiology of fever. Reviewed by: Francy Krishnan MD on 02/08/2022 7:58 PM PDT Approved by: Francy Krishnan MD on 02/08/2022 7:58 PM PDT Station ID: [id number]
[2022-02-08] MEDS ORDERED: ACETAMINOPHEN 325 MG TABLET PO PRN (21:11)
[2022-02-08] MEDS ORDERED: SODIUM CHLORIDE FLUSH 0.9% 10 ML SYRINGE IVP PRN (21:11)
[2022-02-08] MEDS ORDERED: ONDANSETRON 4 MG/2 ML VIAL IVP PRN (21:11)
--- NOTE | 2022-02-08 21:21 | HISTORY & PHYSICAL EXAMINATION ---
Chief Complaint - Chief Complaint Chief Complaint: altered mental status History of Present Illness - Admitted From Admitted From:: [facility] ED - History Obtained From Records Reviewed: yes History obtained from: ED provider and patient's son Exam Limitations: altered mental status - History of Present Illness HPI Comment/Other: 86-year-old male was brought to the ED via EMS from home place where he resides for evaluation of fever and altered mental status. He had recently been seen in the emergency department and diagnosed with a UTI for which she was on cephalexin. The patient is not able to provide a history. He would open his eyes to command but not able to respond verbally. He does not follow any other commands. In the ED he was noted to be in atrial fibrillation with rapid ventricular rhythm. He has a history of atrial fibrillation and had undergone an ablation in the past. Further work-up included a troponin level which was 3000. His white blood cell count was 16.7. Creatinine 1.3 with a sodium of 152. He has significantly dry oral mucosa. The patient's clinical status and lab findings were discussed with his son who maintained that they did not want any aggressive or invasive treatment and did not wish for the patient to be transferred for any such treatment. He was agreeable to medical management at the time. CT brain without contrast could not rule out a small acute hemorrhage and it was recommended that a repeat CT be done in 12 to 24 hours. History - Past Medical History Cardiovascular: reports: Coronary artery disease, Atrial fibrillation Neuro: reports: Dementia Psych: reports: Depression, Anxiety MRSA Hx?: No - Past Surgical History Cardiovascular: reports: CABG, Other (Cardiac ablation) - Family & Social History Family History Comment/Other: son has atrial fibrillation Living arrangement: Assisted living (Home Place) Social History Notes: Social history is limited because the patient is unable to provide due to altered mental status - POLST Patient has POLST: No POLST Status: DNR Meds/Allgy - Home Medications Home Medications: Ambulatory Orders Medication Instructions Recorded Confirmed Acetaminophen [Tylenol] 650 mg PO TID 07/09/21 02/08/22 Ferrous Sulfate 325 mg PO DAILY 07/09/21 02/08/22 Sertraline [Zoloft] 1 tab PO DAILY 07/09/21 02/08/22 cephALEXin [Keflex] 500 mg PO Q6H #20 cap 02/06/22 02/08/22 Ascorbic Acid [Vitamin C] 1,000 mg PO DAILY 02/08/22 02/08/22 Multivitamin 1 tab PO DAILY 02/08/22 02/08/22 - Allergies Allergies/Adverse Reactions: Allergies Allergy/AdvReac Type Severity Reaction Status Date / Time No Known Drug Allergies Allergy Verified 02/06/22 17:54 Review of Systems - Other Findings Other Findings: 12 point review of systems limited due to altered mental status. Prior Level of Functionality: Patient resides at home placed due to dementia. He requires assistance with activities of daily living. His ability to recognize family is intermittent. Exam - Vital Signs Vital Signs: Vital Signs x48h Temp Pulse Resp BP Pulse Ox 02/08/22 21:00 127 H 26 H 133/80 H 97 02/08/22 20:30 104 H 29 H 127/77 97 02/08/22 20:00 120 H 30 H 124/83 H 97 02/08/22 19:30 104 H 23 136/74 H 96 02/08/22 19:00 104 H 29 H 121/71 98 02/08/22 18:33 98 02/08/22 18:30 89 L 02/08/22 18:17 125 H 28 H 02/08/22 18:13 37.3 C 125 H 29 H 106/62 93 02/08/22 17:54 114 H 30 H 125/69 94 02/08/22 17:44 37.3 C 69 18 125/69 94 - Physical Exam General Appearance: positive: No acute distress, Other (awake. not oriented to place, time or reason) Eyes Bilateral: positive: PERRL, EOMI ENT: positive: Dry mucous membranes Neck: positive: No JVD, Trachea midline Respiratory: positive: Chest non-tender, No respiratory distress. negative: Wheezes, Rales, Rhonchi Cardiovascular: positive: No murmur, Irregularly irregular, Tachycardia Abdomen: positive: Nml bowel sounds, Tenderness (lower abdomen) Back: positive: Nml inspection Skin: positive: No rash, Warm, Dry Extremities: positive: Non-tender, Nml appearance, No pedal edema Neurologic/Psychiatric: positive: Disoriented to person, Disoriented to place, Disoriented to time Conclusion/Plan - Problem List (1) NSTEMI (non-ST elevated myocardial infarction) Conclusion/Plan: Initial troponin was 3055.1. Repeat troponin with 3383.7 We will trend x2 more. Patient's family requested medical/conservative management only. Considering possible hemorrhagic CVA we would not administer aspirin or heparin. Family is agreeable to a hospice consult in the morning. (2) Atrial fibrillation with RVR Conclusion/Plan: Heart rate was as fast as 127 in the emergency department. Patient received a dose of diltiazem 5 mg IV x1 with another repeat dose of diltiazem 10 mg IV x1. Metoprolol titrate 5 mg IV every 6 hours as needed ordered for heart rate gr eater than 125. (3) Hemorrhagic cerebrovascular accident (CVA) Conclusion/Plan: Suspected. CT brain without contrast could not rule out a small acute hemorrhage. Repeat CT was recommended. This has been ordered for 24 hours from the previous. (4) Acute kidney injury Conclusion/Plan: Likely prerenal secondary to dehydration. Patient was given 1 L bolus of lactated Ringer's in the ED. After discussion with patient's son who read his advanced directives, it stated the patient did not want any continued IV hydration. Consequently IV hydration was not continued. (5) Dehydration Conclusion/Plan: Creatinine was 1.3 with estimated GFR of 52 and a sodium level of 152. Patient was given 1 L bolus of lactated Ringer's in the ED. IV hydration was not continued following patient's advanced directives relayed by the patient's son Polo Limon (7) UTI (urinary tract infection) Conclusion/Plan: Has been on cephalexin 500 mg p.o. every 6 hours for diagnosis of cystitis over the past several days. Urine and blood cultures obtained in the ED. He was given a dose of Rocephin 1 g IV in the ED. Will hold off on any further antibiotics currently until further discussion of goals of care tomorrow 02/09/2022 Qualifiers: Urinary tract infection type: acute cystitis Hematuria presence: without hematuria Qualified Code(s): N30.00 - Acute cystitis without hematuria (8) Dementia Conclusion/Plan: Not on any medications. Patient resides at Home Place Qualifiers: Dementia type: unspecified type Dementia behavioral disturbance: without behavioral disturbance Qualified Code(s): F03.90 - Unspecified dementia without behavioral disturbance - Lab Results Fish Bones: 02/08/22 17:51 02/08/22 17:51 Core Measures - Anticipated LOS I expect patient to be DC'd or transferred within 96 hours.: Yes - DVT/VTE - Prophylaxis VTE/DVT Device ordered at admit?: Yes
[2022-02-08] MEDS ORDERED: METOPROLOL 5 MG/5 ML VIAL IVP PRN (21:43)
--- NOTE | 2022-02-09 01:17 | CT Report ---
PROCEDURE: HEAD WO INDICATIONS: reevaluate for right frontal ICH TECHNIQUE: Noncontrast 4.5 mm thick angled axial sections acquired from the foramen magnum to the vertex. For r adiation dose reduction, the following was used: automated exposure control, adjustment of mA and/or kV according to patient size. COMPARISON: Noncontrast head CT earlier today at 7:02 PM, 02/07/2020, 02/04/2022 FINDINGS: Image quality: Good. CSF spaces: Basal cisterns are patent. No extra-axial fluid collections. Ventricles are normal in size and shape. Brain: No midline shift. No intracranial masses. Subtle density in the region of the right frontal lobe, (3/20), stable to less conspicuous. No area of hypodensity in a vascular distribution to sugges t acute infarction. There is periventricular hypodensity consistent with chronic microvascular ischem ic disease. Age-related parenchymal loss. Skull and face: Calvarium and visualized facial bones are intact, without suspicious lesions. Sinuses: Visualized sinuses and mastoids are clear. IMPRESSION: Stable to less conspicuous subtle density in the right frontal lobe. In the absence of trauma this is likely artifact. This is difficult to exclude subarachnoid or petechial hemorrhage. Follow-up brain MRI could be performed to evaluate for stability artifact from hemosiderin deposition . Chronic microvascular ischemic disease. Reviewed by: Rickie oRbles MD on 02/09/2022 1:16 AM PDT Approved by: Rickie Robles MD on 02/09/2022 1:16 AM PDT Station ID: [id number]
[2022-02-09] MEDS: SODIUM CHLORIDE FLUSH 0.9% 10 ML SYRINGE IVP SCH ×2 (01:18→08:50)
[2022-02-09 04:59] LABS: BASOPHILS % (AUTO) 0.2 %; HCT - HEMATOCRIT 32.3 % (42.0-52.0); HGB - HEMOGLOBIN 10.7 g/dL (14.0-18.0); LYMPHOCYTES # (AUTO) 0.8 10^3/uL (1.5-3.5); LYMPHOCYTES % (AUTO) 6.1 %; MEAN CORPUSCULAR HEMOGLOBIN 31.1 pg (27.0-31.0); MEAN CORPUSCULAR HGB CONC 33.1 g/dL (32.0-36.0); MEAN CORPUSCULAR VOLUME 93.9 fL (80.0-94.0); MEAN PLATELET VOLUME 13.4 fL (7.4-11.4); MONOCYTES # (AUTO) 0.4 10^3/uL (0.0-1.0); MONOCYTES % (AUTO) 2.9 %; NEUTROPHILS # (AUTO) 11.3 10^3/uL (1.5-6.6); NEUTROPHILS % (AUTO) 90.2 %; PLT - PLATELET COUNT 91 10^3/uL (130-450); RED BLOOD COUNT 3.44 10^6/uL (4.70-6.10); RED CELL DISTRIBUTION WIDTH 14.7 % (12.0-15.0); WHITE BLOOD COUNT 12.6 x10^3/uL (4.8-10.8)
[2022-02-09 05:30] LABS: CALCIUM 8.6 mg/dL (8.5-10.3); CREATININE 1.2 mg/dL (0.6-1.2); POTASSIUM 3.4 mmol/L (3.5-5.0)
[2022-02-09] MEDS ORDERED: MORPHINE SOL 10 MG/0.5 ML ORAL SYRINGE PO PRN (09:11)
--- NOTE | 2022-02-09 09:13 | PHARMACY PROGRESS NOTE ---
- Best Possible Medication History Admit Date and Time: 02/08/222110 Processed by: Pharmacy Medication History completed: Yes Secondary Source(s): Insurance records, Facility MAR as ONLY source As the person ultimately responsible for medication therapy, providers are able to order a medication from an existing home medication list in [facility] via the "Reconcile Routine" prior to Confirmation of that medication by coding support specialist. Such practice is discouraged except when the physician, in their clinical judgment, deems that a medical need exists for a medication without regard to previous use.
--- NOTE | 2022-02-09 09:14 | PROVIDER PROGRESS NOTE ---
Subjective - Prog Note Date Prog Note Date: 02/09/22 - Subjective Pt reports feeling: Worse Subjective: pt is barely responsive, required more O2 support. Other provider already contacted with pt's DPOA, his son Polo/Abel Limon for advanced care plan of hosp [facility] care. I called at pt's DPOA Polo Limon at [phone] phone [phone], updated pt's conditions and discussed the care plan. Polo confirmed he hope his father has hospice care. Based on pt's medical conditions, he believe his father's survival choice is very lower, even his father survived at this time, but his father has been very poor quality of life, he hope his father has hospice care and focus on comfortable care. I called hospice care provider, she is at the meeting, she will call me back. Current Medications - Current Medications Current Medications: Active Medications Acetaminophen (Acetaminophen 325 Mg Tablet) 650 mg PO Q4HR PRN PRN Reason: Pain 1 to 4, or Fever Metoprolol Tartrate (Metoprolol 5 Mg/5 Ml Vial) 5 mg IVP Q6H PRN PRN Reason: Tachycardia Last Admin: 02/09/22 08:45 Dose: 5 mg Morphine Sulfate (Morphine Leola 10 Mg/0.5 Ml Oral Syringe) 5 mg PO Q2HR PRN PRN Reason: PAIN Ondansetron HCl (Ondansetron 4 Mg/2 Ml Vial) 4 mg IVP Q6HR PRN PRN Reason: Nausea / Vomiting Sodium Chloride (Sodium Chloride Flush 0.9% 10 Ml Syringe) 10 ml IVP PRN PRN PRN Reason: NEEDED PER PROVIDER ORDERS Sodium Chloride (Sodium Chloride Flush 0.9% 10 Ml Syringe) 10 ml IVP 0100,0900,1700 [facility] Last Admin: 02/09/22 08:50 Dose: 10 ml Acetaminophen [Tylenol] 650 mg PO TID 07/09/21 Ferrous Sulfate 325 mg PO DAILY 07/09/21 Sertraline [Zoloft] 1 tab PO DAILY 07/09/21 Multivitamin 1 tab PO DAILY 02/08/22 Ascorbic Acid [Vitamin C] 500 mg PO DAILY 02/09/22 Diclofenac Sodium [Voltaren Arthritis Pain] 4 gm TOP Q6H 02/09/22 Objective - Vital Signs/Intake & Output Vital Signs: Vital Signs x48h Temp Pulse Pulse Resp BP BP Pulse Ox 02/09/22 09:00 90 130/68 02/09/22 08:57 93 117/65 02/09/22 08:50 95 117/67 02/09/22 08:45 123/68 02/09/22 07:53 60 20 125/65 99 02/09/22 05:40 113/70 02/09/22 05:37 37.3 C 110 H 25 H 96 Intake & Output: Intake & Output 02/06/22 02/07/22 02/08/22 02/09/22 23:59 23:59 23:59 23:59 Intake Total 2100 Balance 2100 - Objective General Appearance: positive: Lethargic Eyes Bilateral: positive: No lid inflammation ENT: positive: ENT inspection nml, Dry mucous membranes Neck: positive: Nml inspection, Trachea midline. negative: Tracheal deviation Respiratory: positive: Chest non-tender, Rales, Other (shortness of breathing) Cardiovascular: positive: Irregularly irregular, Tachycardia. negative: Systolic murmur Peripheral Pulses: 2+ Radial (R), 2+ Radial (L) Abdomen: positive: Non-tender, Nml bowel sounds, No distention Skin: positive: Color nml, Warm, Dry Extremities: positive: Non-tender, Nml appearance Neurologic/Psychiatric: positive: Other (barely responsive). negative: Facial droop - Lab Results Fish Bones: 02/09/22 04:08 02/09/22 04:08 Other Labs: Lab Results x24hrs 02/09/22 02/09/22 02/09/22 Range/Units 04:08 04:08 04:08 WBC 12.6 H (4.8-10.8) x10^3/uL RBC 3.44 L (4.70-6.10) 10^6/uL Hgb 10.7 L (14.0-18.0) g/dL Hct 32.3 L (42.0-52.0) % MCV 93.9 (80.0-94.0) fL MCH 31.1 H (27.0-31.0) pg MCHC 33.1 (32.0-36.0) g/dL RDW 14.7 (12.0-15.0) % Plt Count 91 L (130-450) 10^3/uL MPV 13.4 H (7.4-11.4) fL Neut # (Auto) 11.3 H (1.5-6.6) 10^3/uL Lymph # (Auto) 0.8 L (1.5-3.5) 10^3/uL Frontier # (Auto) 0.4 (0.0-1.0) 10^3/uL Eos # (Auto) 0.0 (0.0-0.7) 10^3/uL Baso # (Auto) 0.0 (0.0-0.1) 10^3/uL Absolute Nucleated RBC 0.00 x10^3/uL Nucleated RBC % 0.0 /100WBC Sodium 157 H* (135-145) mmol/L Potassium 3.4 L (3.5-5.0) mmol/L Chloride 117 H (101-111) mmol/L Carbon Dioxide 27 (21-32) mmol/L Anion Gap 13.0 (6-13) BUN 56 H (6-20) mg/dL Creatinine 1.2 (0.6-1.2) mg/dL Estimated GFR (MDRD) 58 L (>89) Glucose 145 H (70-100) mg/dL Lactic Acid (0.5-2.2) mmol/L Calcium 8.6 (8.5-10.3) mg/dL Total Bilirubin (0.2-1.0) mg/dL AST (10-42) IU/L ALT (10-60) IU/L Alkaline Phosphatase (42-121) IU/L Troponin I High Sens 2643.0 H* (2.3-19.7) ng/L Total Protein (6.7-8.2) g/dL Albumin (3.2-5.5) g/dL Globulin (2.1-4.2) g/dL Albumin/Globulin Ratio (1.0-2.2) Urine Color Urine Clarity (CLEAR) Urine pH (5.0-7.5) PH Ur Specific Reagan (1.002-1.030) Urine Protein (NEGATIVE) mg/dL Urine Glucose (UA) (NEGATIVE) mg/dL Urine Ketones (NEGATIVE) mg/dL Urine Occult Blood (NEGATIVE) Urine Nitrite (NEGATIVE) Urine Bilirubin (NEGATIVE) Urine Urobilinogen (NORMAL) E.U./dL Ur Leukocyte Esterase (NEGATIVE) Urine RBC (0-5) /HPF Urine WBC (0-3) /HPF Urine WBC Clumps Ur Squamous Epith Cells (<= Few) Amorphous Sediment /LPF Urine Bacteria (None Seen) /HPF Urine Casts /LPF Urine Culture Comments SARS-CoV-2 (PCR) 02/08/22 02/08/22 02/08/22 Range/Units 21:00 20:27 18:05 WBC (4.8-10.8) x10^3/uL RBC (4.70-6.10) 10^6/uL Hgb (14.0-18.0) g/dL Hct (42.0-52.0) % MCV (80.0-94.0) fL MCH (27.0-31.0) pg MCHC (32.0-36.0) g/dL RDW (12.0-15.0) % Plt Count (130-450) 10^3/uL MPV (7.4-11.4) fL Neut # (Auto) (1.5-6.6) 10^3/uL Lymph # (Auto) (1.5-3.5) 10^3/uL Frontier # (Auto) (0.0-1.0) 10^3/uL Eos # (Auto) (0.0-0.7) 10^3/uL Baso # (Auto) (0.0-0.1) 10^3/uL Absolute Nucleated RBC x10^3/uL Nucleated RBC % /100WBC Sodium (135-145) mmol/L Potassium (3.5-5.0) mmol/L Chloride (101-111) mmol/L Carbon Dioxide (21-32) mmol/L Anion Gap (6-13) BUN (6-20) mg/dL Creatinine (0.6-1.2) mg/dL Estimated GFR (MDRD) (>89) Glucose (70-100) mg/dL Lactic Acid (0.5-2.2) mmol/L Calcium (8.5-10.3) mg/dL Total Bilirubin (0.2-1.0) mg/dL AST (10-42) IU/L ALT (10-60) IU/L Alkaline Phosphatase (42-121) IU/L Troponin I High Sens 3383.7 H* (2.3-19.7) ng/L Total Protein (6.7-8.2) g/dL Albumin (3.2-5.5) g/dL Globulin (2.1-4.2) g/dL Albumin/Globulin Ratio (1.0-2.2) Urine Color YELLOW Urine Clarity HAZY (CLEAR) Urine pH 6.0 (5.0-7.5) PH Ur Specific Reagan 1.020 (1.002-1.030) Urine Protein 100 H (NEGATIVE) mg/dL Urine Glucose (UA) NEGATIVE (NEGATIVE) mg/dL Urine Ketones NEGATIVE (NEGATIVE) mg/dL Urine Occult Blood MODERATE H (NEGATIVE) Urine Nitrite NEGATIVE (NEGATIVE) Urine Bilirubin NEGATIVE (NEGATIVE) Urine Urobilinogen 1 (NORMAL) (NORMAL) E.U./dL Ur Leukocyte Esterase SMALL H (NEGATIVE) Urine RBC 6-10 H (0-5) /HPF Urine WBC >25 H (0-3) /HPF Urine WBC Clumps PRESENT Ur Squamous Epith Cells FEW Squamous (<= Few) Amorphous Sediment Few /LPF Urine Bacteria Few (None Seen) /HPF Urine Casts 0-2 WBC Casts /LPF Urine Culture Comments INDICATED SARS-CoV-2 (PCR) NOT DETECTED 02/08/22 02/08/22 02/08/22 Range/Units 17:51 17:51 17:51 WBC (4.8-10.8) x10^3/uL RBC (4.70-6.10) 10^6/uL Hgb (14.0-18.0) g/dL Hct (42.0-52.0) % MCV (80.0-94.0) fL MCH (27.0-31.0) pg MCHC (32.0-36.0) g/dL RDW (12.0-15.0) % Plt Count (130-450) 10^3/uL MPV (7.4-11.4) fL Neut # (Auto) (1.5-6.6) 10^3/uL Lymph # (Auto) (1.5-3.5) 10^3/uL Frontier # (Auto) (0.0-1.0) 10^3/uL Eos # (Auto) (0.0-0.7) 10^3/uL Baso # (Auto) (0.0-0.1) 10^3/uL Absolute Nucleated RBC x10^3/uL Nucleated RBC % /100WBC Sodium 152 H (135-145) mmol/L Potassium 3.2 L (3.5-5.0) mmol/L Chloride 114 H (101-111) mmol/L Carbon Dioxide 24 (21-32) mmol/L Anion Gap 14.0 H (6-13) BUN 61 H (6-20) mg/dL Creatinine 1.3 H (0.6-1.2) mg/dL Estimated GFR (MDRD) 52 L (>89) Glucose 146 H (70-100) mg/dL Lactic Acid 1.4 (0.5-2.2) mmol/L Calcium 8.4 L (8.5-10.3) mg/dL Total Bilirubin 1.8 H (0.2-1.0) mg/dL AST 43 H (10-42) IU/L ALT 39 (10-60) IU/L Alkaline Phosphatase 104 (42-121) IU/L Troponin I High Sens 3055.1 H* (2.3-19.7) ng/L Total Protein 6.7 (6.7-8.2) g/dL Albumin 2.8 L (3.2-5.5) g/dL Globulin 3.9 (2.1-4.2) g/dL Albumin/Globulin Ratio 0.7 L (1.0-2.2) Urine Color Urine Clarity (CLEAR) Urine pH (5.0-7.5) PH Ur Specific Reagan (1.002-1.030) Urine Protein (NEGATIVE) mg/dL Urine Glucose (UA) (NEGATIVE) mg/dL Urine Ketones (NEGATIVE) mg/dL Urine Occult Blood (NEGATIVE) Urine Nitrite (NEGATIVE) Urine Bilirubin (NEGATIVE) Urine Urobilinogen (NORMAL) E.U./dL Ur Leukocyte Esterase (NEGATIVE) Urine RBC (0-5) /HPF Urine WBC (0-3) /HPF Urine WBC Clumps Ur Squamous Epith Cells (<= Few) Amorphous Sediment /LPF Urine Bacteria (None Seen) /HPF Urine Casts /LPF Urine Culture Comments SARS-CoV-2 (PCR) 02/08/22 Range/Units 17:51 WBC 16.7 H (4.8-10.8) x10^3/uL RBC 3.55 L (4.70-6.10) 10^6/uL Hgb 11.2 L (14.0-18.0) g/dL Hct 33.1 L (42.0-52.0) % MCV 93.2 (80.0-94.0) fL MCH 31.5 H (27.0-31.0) pg MCHC 33.8 (32.0-36.0) g/dL RDW 14.4 (12.0-15.0) % Plt Count 93 L (130-450) 10^3/uL MPV 13.4 H (7.4-11.4) fL Neut # (Auto) 14.4 H (1.5-6.6) 10^3/uL Lymph # (Auto) 0.8 L (1.5-3.5) 10^3/uL Frontier # (Auto) 1.3 H (0.0-1.0) 10^3/uL Eos # (Auto) 0.0 (0.0-0.7) 10^3/uL Baso # (Auto) 0.0 (0.0-0.1) 10^3/uL Absolute Nucleated RBC 0.00 x10^3/uL Nucleated RBC % 0.0 /100WBC Sodium (135-145) mmol/L Potassium (3.5-5.0) mmol/L Chloride (101-111) mmol/L Carbon Dioxide (21-32) mmol/L Anion Gap (6-13) BUN (6-20) mg/dL Creatinine (0.6-1.2) mg/dL Estimated GFR (MDRD) (>89) Glucose (70-100) mg/dL Lactic Acid (0.5-2.2) mmol/L Calcium (8.5-10.3) mg/dL Total Bilirubin (0.2-1.0) mg/dL AST (10-42) IU/L ALT (10-60) IU/L Alkaline Phosphatase (42-121) IU/L Troponin I High Sens (2.3-19.7) ng/L Total Protein (6.7-8.2) g/dL Albumin (3.2-5.5) g/dL Globulin (2.1-4.2) g/dL Albumin/Globulin Ratio (1.0-2.2) Urine Color Urine Clarity (CLEAR) Urine pH (5.0-7.5) PH Ur Specific Reagan (1.002-1.030) Urine Protein (NEGATIVE) mg/dL Urine Glucose (UA) (NEGATIVE) mg/dL Urine Ketones (NEGATIVE) mg/dL Urine Occult Blood (NEGATIVE) Urine Nitrite (NEGATIVE) Urine Bilirubin (NEGATIVE) Urine Urobilinogen (NORMAL) E.U./dL Ur Leukocyte Esterase (NEGATIVE) Urine RBC (0-5) /HPF Urine WBC (0-3) /HPF Urine WBC Clumps Ur Squamous Epith Cells (<= Few) Amorphous Sediment /LPF Urine Bacteria (None Seen) /HPF Urine Casts /LPF Urine Culture Comments SARS-CoV-2 (PCR) ABX Reporting Has patient been on IV antibiotics over the past 48 hours?: No Sepsis Event Note (H) - Evaluation Current Stage of Sepsis: Sepsis Possible source of Sepsis: positive: Pulmonary - Sepsis Criteria Sepsis Criteria: Recorded Heart Rate greater than 90 bpm, Recorded Respiratory Rate greater than 20, WBC count greater than 10% bands, WBC count greater than 12,000 or less than 4000 Assessment/Plan - Problem List (1) STEMI (ST elevation myocardial infarction) Impression: 02/09 pt had over [id number] troponin, EKG reveal elevated ST at III and AVR. concern about possible Hemorrhagic CVA in CT of brain and pt had fall happened at nurse facility one week ago. hold blood thinner in ER and admission. Also patient's family hope to have hospice care, focus on comfortable care for pt. continue comfortable care, consult with hospice care. (2) Atrial fibrillation with RVR Conclusion/Plan: pt has hx of a fib. pt had elevated Heart rate was around 120. Pt was order IV of Metoprolol titrate 5 mg IV every 6 hours as needed ordered for heart rate greater than 125, focus on comfortable care. (3) Hemorrhagic cerebrovascular accident (CVA) Conclusion/Plan: pt had a fall at nurse facility with brain injury, and altered mental status and barely responsive to command. CT brain without contrast could not rule out a small acute hemorrhage, Repeat CT still could not exclude hemorrhage. At this point, patient's family hope to have hospice care, focus on comfortable care for pt. (4)acute respiratory failure with hypoxia pt's CT and chest x-ray reveals bibasilar pneumonia and small effusion. [facility] a [facility] at [facility], nurse reported patient had a fever again on today morning. Patient required 5 L oxygen to support his O2 sat. pt is septic. Pt's Family, patient DPOA, hope no intravenous IV hydration for pt, and hope to have hospice care, focus on comfortable care for pt. pt is likely imminent . (5)pneumonia pt's CT and chest x-ray reveals bibasilar pneumonia and small effusion, fever, elevated WBC and Patient required 5 L oxygen to support his O2 sat, per nurse home report pt likely has aspiration pneumonia. patient DPOA, hope no intravenous IV hydration for pt, and hope to have hospice care, focus on comfortable care for pt. (6)sepsis pt had fever, elevated WBC and Patient required 5 L oxygen to support his O2 sat, pt's CT and chest x-ray reveals bibasilar pneumonia and small effusion. patient DPOA, hope no intravenous IV hydration for pt, and hope to have hospice care, focus on comfortable care for pt. (7) Dehydration pt clinically present significant dehydration, Na is 157. patient DPOA, hope no intravenous IV hydration for pt, and hope to have hospice care, focus on comfortable care for pt. (8) UTI (urinary tract infection) UA analysis indicate infection, and elevated WBC. DPOA hope to have hospice care, focus on comfortable care for pt. (9) Advanced Dementia DPOA report pt has advanced dementia and a poor quality of life. DPOA hope to have hospice care, focus on comfortable care for pt. (10) encounter of hospice care updated pt's conditions to his DPOA, and Discussed with DPOA for the care plan. DPOA hope to have hospice care, focus on comfortable care for pt.
[2022-02-09 09:51] VITALS: BP 121/63
[2022-02-09] MEDS ORDERED: ACETAMINOPHEN 1,000 MG/100 ML 100 ML IV ONE (10:00)
--- NOTE | 2022-02-09 13:14 | Discharge Plan ---
Discharge Plan Problem Reviewed?: Yes Disposition: 50 Hospice/Home DC/Xfer Condition: Serious Prescriptions: Morphine Oral Soln [Roxanol] 5 mg PO Q2HR PRN #30 ml PRN Reason: Pain Instruction Topics: Hospice Health Concerns: hospice care Plan of Treatment: pt may followup with hospice care Care Goals: Comfortable, quality of life, hospice care Assessment: Discussed the care plan with patient's DPOA, hospice care provider. DPOA hope to have hospice care for patient. hospice provider accepted patient for hospice care. Additional Instructions or Follow Up instructions: Patient may follow-up with hospice care. No Smoking: If you smoke, Please STOP! Call for help.
--- NOTE | 2022-02-09 13:18 | DISCHARGE SUMMARY ---
"Discharge Summary Admit Date: 02/08/22 Discharge Date: 02/09/22 Discharging Provider: Rudy Hahn Primary Care Provider: Brandi Fitzpatrick Condition at Discharge: Serious Discharge Disposition: 50 Hospice/Home DC/Xfer Discharge Facility Name: [facility] - DIAGNOSES Discharge Diagnoses with Status of Each Condition: (1) STEMI (ST elevation myocardial infarction) pt had over [id number] troponin, EKG reveal elevated ST at III and AVR. Pt likely has STEMI. Pt was also concerned about possible Hemorrhagic CVA in CT of brain and pt had fall happened at nurse facility one week ago. hold blood thinner in ER and admission. patient's family DPOA hope to have hospice care and focus on comfortable care for pt. consulted with hospice care. pt was accepted by hospice care for [facility] service. (2) Atrial fibrillation with RVR pt has hx of a fib. pt had elevated Heart rate was around 120. Pt was order IV of Metoprolol titrate 5 mg IV every 6 hours as needed ordered for heart rate greater than 125 in the hospital. Now pt is d/c for hospice care. (3) Hemorrhagic cerebrovascular accident (CVA) pt had a fall at nurse facility with brain injury about one week ago. pt is barely responsive to command. CT brain without contrast could not rule out a small acute hemorrhage, Repeat CT still could not exclude hemorrhage. At this point, patient's family hope to have hospice care, focus on comfortable care for pt. pt was accepted by hospice care for [facility] service. (4)acute respiratory failure with hypoxia pt's CT and chest x-ray reveals bibasilar pneumonia and small effusion. Patient had a fever at [facility], nurse reported patient had a fever again on today morning. Patient required 5 L oxygen to support his O2 sat. pt is septic. Pt's Family, patient DPOA, hope no intravenous IV hydration for pt, and hope to have hospice care, focus on comfortable care for pt. pt was accepted by hospice care for [facility] service. (5)pneumonia pt's CT and chest x-ray reveals bibasilar pneumonia and small effusion, fever, elevated WBC and Patient required 5 L oxygen to support his O2 sat, per nurse at nurse facility report pt likely had aspiration pneumonia. patient DPOA, hope no intravenous IV hydration for pt, and hope to have hospice care, focus on comfortable care for pt. (6)sepsis pt had fever, elevated WBC and Patient required 5 L oxygen to support his O2 sat, pt's CT and chest x-ray reveals bibasilar pneumonia and small effusion. patient DPOA, hope no intravenous IV hydration for pt, and hope to have hospice care, focus on comfortable care for pt. (7) Dehydration pt clinically present significant dehydration, Na is 157. patient DPOA, hope no intravenous IV hydration for pt, and hope to have hospice care, focus on comfortable care for pt. pt was accepted by hospice care for [facility] service. (8) UTI (urinary tract infection) UA analysis indicate infection, and elevated WBC. DPOA hope to have hospice care, focus on comfortable care for pt. (9) Advanced Dementia DPOA report pt has advanced dementia and a poor quality of life. DPOA hope to have hospice care, focus on comfortable care for pt. (10) encounter of hospice care updated pt's conditions to his DPOA, and Discussed with DPOA for the care plan. DPOA hope to have hospice care, focus on comfortable care for pt. consulted with hospice care. pt was accepted by hospice care for [facility] service. - HPI History of Present Illness: refer from Dr. Ng's HPI on 02/08/22 86-year-old male was brought to the ED via EMS from [facility] where he resides for evaluation of fever and altered mental status. He had recently been seen in the emergency department and diagnosed with a UTI for which she was on ceph alexin. The patient is not able to provide a history. He would open his eyes to command but not able to respond verbally. He does not follow any other commands. In the ED he was noted to be in atrial fibrillation with rapid ventricular rhythm. He has a history of atrial fibrillation and had undergone an ablation in the past. Further work-up included a troponin level which was 3000. His white blood cell count was 16.7. Creatinine 1.3 with a sodium of 152. He has significantly dry oral mucosa. The patient's clinical status and lab findings were discussed with his son who maintained that they did not want any aggressive or invasive treatment and did not wish for the patient to be transferred for any such treatment. He was agreeable to medical management at the time. CT brain without contrast could not rule out a small acute hemorrhage and it was recommended that a repeat CT be done in 12 to 24 hours. - CONSULTS | PROCEDURES Consultations: hospice care Procedures: [facility] service - ALLERGIES Allergies/Adverse Reactions: Allergies Allergy/AdvReac Type Severity Reaction Status Date / Time No Known Drug Allergies Allergy Verified 02/06/22 17:54 - MEDICATIONS Home Medications: Ambulatory Orders Medication Instructions Recorded Confirmed Morphine Oral Soln [Roxanol] 5 mg PO Q2HR PRN #30 ml 02/09/22 - PHYSICAL EXAM AT DISCHARGE General Appearance: positive: Mild distress, Lethargic Eyes Bilateral: positive: Normal inspection, No lid inflammation ENT: positive: ENT inspection nml, Dry mucous membranes Neck: positive: Nml inspection, Trachea midline. negative: Tracheal deviation Respiratory: positive: Chest non-tender, Other (Tachypnea) Cardiovascular: positive: Irregularly irregular, Tachycardia Peripheral Pulses: positive: 2+ Abdomen: positive: Non-tender, Nml bowel sounds, No distention Back: positive: Nml inspection Skin: positive: Color nml, Warm, Dry Extremities: positive: Non-tender Neurologic/Psychiatric: negative: Facial droop - LABS Result Diagrams: 02/09/22 04:08 02/09/22 04:08 - SEPSIS Current Stage of Sepsis: Sepsis Possible source of Sepsis: Pulmonary Sepsis Criteria: Recorded Heart Rate greater than 90 bpm, Recorded Respiratory Rate greater than 20, WBC count greater than 10% bands, WBC count greater than 12,000 or less than 4000 - FOLLOW UP Follow Up: Patient may follow-up with hospice care - TIME SPENT Time Spent in Discharge (Minutes): 30"
[2022-02-09] MEDS ORDERED: ACETAMINOPHEN 1,000 MG/100 ML 100 ML IV PRN (16:00)
--- NOTE | 2022-02-10 07:31 | PROVIDER PROGRESS NOTE ---
Hassock Maker Note - Hassock Maker Note Hassock Maker Note: It was brought to my attention this morning that the patient was unresponsive. Upon presentation to bedside patient was not responsive to tactile or verbal stimuli. Breath and heart sounds were absent upon auscultation of the lungs. Carotid and radial pulses were absent bilaterally. Patient's pupils were fixed dilated and nonreactive to light. Patient was pronounced on 02/10/22. Time of 6:59 AM. Patient's son Polo Limon was notified.
== END 2022-02-09 13:39 | disposition hospice, home (50) | DRG 871 ==
LOC: EDUNIT# → ED 17:37 → MS2 21:11
PROVIDERS: ADMIT Internal Medicine; ATTEND Internal Medicine
DX: A41.9 Sepsis, unspecified organism (principal); I21.4 Non-ST elevation (NSTEMI) myocardial infarction; I21.3 ST elevation (STEMI) myocardial infarction of unspecified site; J18.9 Pneumonia, unspecified organism; J96.01 Acute respiratory failure with hypoxia; I45.10 Unspecified right bundle-branch block; D72.829 Elevated white blood cell count, unspecified; E87.0 Hyperosmolality and hypernatremia; R41.82 Altered mental status, unspecified; Z20.822 Contact with and (suspected) exposure to COVID-19; S06.309A Unspecified focal traumatic brain injury with loss of consciousness of unspecified duration, initial encounter; Z79.899 Other long term (current) drug therapy; J90 Pleural effusion, not elsewhere classified; N17.9 Acute kidney failure, unspecified; N30.00 Acute cystitis without hematuria; I25.10 Atherosclerotic heart disease of native coronary artery without angina pectoris; I48.91 Unspecified atrial fibrillation; E86.0 Dehydration; F03.90 Unspecified dementia, unspecified severity, without behavioral disturbance, psychotic disturbance, mood disturbance, and anxiety; F32.A Depression, unspecified; F41.9 Anxiety disorder, unspecified; W19.XXXA Unspecified fall, initial encounter; Z51.5 Encounter for palliative care; Z66 Do not resuscitate; Z82.49 Family history of ischemic heart disease and other diseases of the circulatory system; Z95.1 Presence of aortocoronary bypass graft
CPT/HCPCS: 36415; 51701; 70450; 71045; 74177; 80048; 80053; 81001; 83605; 84484; 85025; 87040; 87086; 87150; 87181; 87635; 93005; 96361; 96365; 96375; 96376; 99285; 99291; J0131; J7120; Q9967

== ENCOUNTER 2022-02-09 12:31 | Inpatient (IN) | payer MEDICARE, OTHER ==
[2022-02-09] MEDS ORDERED: MORPHINE 10 MG/ML VIAL IVP PRN (13:03)
[2022-02-09] MEDS ORDERED: GLYCOPYRROLATE 1 MG/5 ML VIAL SUBQ PRN (13:03)
[2022-02-09] MEDS ORDERED: ONDANSETRON 4 MG/2 ML VIAL IVP PRN (13:03)
[2022-02-09] MEDS ORDERED: LORazepam 2 MG/ML VIAL IVP PRN (13:03)
--- NOTE | 2022-02-09 13:03 | HISTORY & PHYSICAL EXAMINATION ---
History and Physical - History and Physical ID/CC: 86 yo gentleman w/underlying dementia admitted w/bilateral pneumonia, A fib w/RVR and NSTEMI HPI: [facility] He was brought to the ED several days ago and dx'd w/UTI for which he was given Keflex. He had been doing okay until yesterday, at which time he developed decreased LOC and fever. He was brought to the ED where he was found to have evidence of bilateral pneumonia, a fib w/RVR, hypernatremia, NSTEMI and possible punctate focus of cerebral petechiae. He was admitted to the hospitalist service. At the time of admission, son (ANDREZ) advised his dad would not want IVFs or other interventions. This am, son requested hospice care. Pt was unresponsive this am. He has been dyspneic, febrile and has appeared uncomfortable per hospitalist team. Consult was requested. Pt remains unresponsive. Briefly opens his eyes during my visit but did not track. ROS: Unable to obtsom4 PMH: Dementia Atrial fibrillation s/p ablation CAD s/p CABG Meds: Patient History Medication Instructions Recorded Confirmed Acetaminophen [Tylenol] 650 mg PO TID 07/09/21 02/08/22 Ferrous Sulfate 325 mg PO DAILY 07/09/21 02/08/22 Sertraline [Zoloft] 50 mg PO DAILY 07/09/21 02/09/22 Multivitamin 1 tab PO DAILY 02/08/22 02/08/22 Ascorbic Acid [Vitamin C] 500 mg PO DAILY 02/09/22 02/09/22 Diclofenac Sodium [Voltaren 4 gm TOP Q6H 02/09/22 02/09/22 Arthritis Pain] Allergies: NKDA Fam Hx: Son has atrial fibrillation Soc Hx: [facility] Unknown if he has a history of alcohol/drug/tobacco use Exam: Gen: Unresponsive elderly male, flushed, tachypneic HEENT: NC, face symmetric, very dry mucus membranes Neck: symmetric in appearance CV: tachycardic, irregularly irregular Abd: soft, ND BT hypoactive, tender to palpation in the suprapubic region Extr: warm, well perfused, no C/C/E skin: hot, dry, flushed Labs: Laboratory Results - last 24 hr 02/08/22 02/08/22 02/08/22 17:51 17:51 17:51 WBC 16.7 H RBC 3.55 L Hgb 11.2 L Hct 33.1 L MCV 93.2 MCH 31.5 H MCHC 33.8 RDW 14.4 Plt Count 93 L MPV 13.4 H Neut # (Auto) 14.4 H Lymph # (Auto) 0.8 L Garza # (Auto) 1.3 H Eos # (Auto) 0.0 Baso # (Auto) 0.0 Absolute Nucleated RBC 0.00 Nucleated RBC % 0.0 Sodium 152 H Potassium 3.2 L Chloride 114 H Carbon Dioxide 24 Anion Gap 14.0 H BUN 61 H Creatinine 1.3 H Estimated GFR (MDRD) 52 L Glucose 146 H Lactic Acid 1.4 Calcium 8.4 L Total Bilirubin 1.8 H AST 43 H ALT 39 Alkaline Phosphatase 104 Troponin I High Sens Total Protein 6.7 Albumin 2.8 L Globulin 3.9 Albumin/Globulin Ratio 0.7 L Urine Color Urine Clarity Urine pH Ur Specific [place] Urine Protein Urine Glucose (UA) Urine Ketones Urine Occult Blood Urine Nitrite Urine Bilirubin Urine Urobilinogen Ur Leukocyte Esterase Urine RBC Urine WBC Urine WBC Clumps Ur Squamous Epith Cells Amorphous Sediment Urine Bacteria Urine Casts Urine Culture Comments SARS-CoV-2 (PCR) 02/08/22 02/08/22 02/08/22 17:51 18:05 20:27 WBC RBC Hgb Hct MCV MCH MCHC RDW Plt Count MPV Neut # (Auto) Lymph # (Auto) Garza # (Auto) Eos # (Auto) Baso # (Auto) Absolute Nucleated RBC Nucleated RBC % Sodium Potassium Chloride Carbon Dioxide Anion Gap BUN Creatinine Estimated GFR (MDRD) Glucose Lactic Acid Calcium Total Bilirubin AST ALT Alkaline Phosphatase Troponin I High Sens 3055.1 H* 3383.7 H* Total Protein Albumin Globulin Albumin/Globulin Ratio Urine Color YELLOW Urine Clarity HAZY Urine pH 6.0 Ur Specific [place] 1.020 Urine Protein 100 H Urine Glucose (UA) NEGATIVE Urine Ketones NEGATIVE Urine Occult Blood MODERATE H Urine Nitrite NEGATIVE Urine Bilirubin NEGATIVE Urine Urobilinogen 1 (NORMAL) Ur Leukocyte Esterase SMALL H Urine RBC 6-10 H Urine WBC >25 H Urine WBC Clumps PRESENT Ur Squamous Epith Cells FEW Squamous Amorphous Sediment Few Urine Bacteria Few Urine Casts 0-2 WBC Casts Urine Culture Comments INDICATED SARS-CoV-2 (PCR) 0402/09/22 02/09/22 21:00 04:08 04:08 WBC 12.6 H RBC 3.44 L Hgb 10.7 L Hct 32.3 L MCV 93.9 MCH 31.1 H MCHC 33.1 RDW 14.7 Plt Count 91 L MPV 13.4 H Neut # (Auto) 11.3 H Lymph # (Auto) 0.8 L Garza # (Auto) 0.4 Eos # (Auto) 0.0 Baso # (Auto) 0.0 Absolute Nucleated RBC 0.00 Nucleated RBC % 0.0 Sodium 157 H* Potassium 3.4 L Chloride 117 H Carbon Dioxide 27 Anion Gap 13.0 BUN 56 H Creatinine 1.2 Estimated GFR (MDRD) 58 L Glucose 145 H Lactic Acid Calcium 8.6 Total Bilirubin AST ALT Alkaline Phosphatase Troponin I High Sens Total Protein Albumin Globulin Albumin/Globulin Ratio Urine Color Urine Clarity Urine pH Ur Specific [place] Urine Protein Urine Glucose (UA) Urine Ketones Urine Occult Blood Urine Nitrite Urine Bilirubin Urine Urobilinogen Ur Leukocyte Esterase Urine RBC Urine WBC Urine WBC Clumps Ur Squamous Epith Cells Amorphous Sediment Urine Bacteria Urine Casts Urine Culture Comments SARS-CoV-2 (PCR) NOT DETECTED 02/09/22 04:08 WBC RBC Hgb Hct MCV MCH MCHC RDW Plt Count MPV Neut # (Auto) Lymph # (Auto) Garza # (Auto) Eos # (Auto) Baso # (Auto) Absolute Nucleated RBC Nucleated RBC % Sodium Potassium Chloride Carbon Dioxide Anion Gap BUN Creatinine Estimated GFR (MDRD) Glucose Lactic Acid Calcium Total Bilirubin AST ALT Alkaline Phosphatase Troponin I High Sens 2643.0 H* Total Protein Albumin Globulin Albumin/Globulin Ratio Urine Color Urine Clarity Urine pH Ur Specific [place] Urine Protein Urine Glucose (UA) Urine Ketones Urine Occult Blood Urine Nitrite Urine Bilirubin Urine Urobilinogen Ur Leukocyte Esterase Urine RBC Urine WBC Urine WBC Clumps Ur Squamous Epith Cells Amorphous Sediment Urine Bacteria Urine Casts Urine Culture Comments SARS-CoV-2 (PCR) Assessment: 1. Bilateral pneumonia 2. Hypernatremia 3. A fib w/RVR 4. NSTEMI 5. Dementia 6. Thrombocytopenia 7. Azotemia 8. Macrocytic anemia Code status: DNAR Plan: At this time, family requesting comfort care. Pt is clearly uncomfortable and his needs cannot be met at his [facility]. Discussed with son that pt is unlikely to survive his hospital stay. He agrees. We discussed option of admission to hospice care and admission to [facility] level of care to manage his dyspnea/pain/fever. Son is in agreement. Anticipated prognosis is 24 hours or less.
--- OUTSIDE RECORDS SUMMARY | 2022-02-09 13:49 | EXTERNAL MEDICAL SUMMARY RPT | Continuity of Care Document ---
:1935 Author Organization [facility] Address [address] [place] [address] Phone Allergies No information. Encounters No information. Medications No information. Problems date description facility [id number] Pain in left [facility] Results No information.
[2022-02-09] MEDS ORDERED: MORPHINE 10 MG/ML VIAL IVP SCH (14:00)
[2022-02-09 14:18] VITALS: BP 117/63
[2022-02-09] MEDS: MORPHINE 2 MG/ML CARPUJECT IVP SCH ×3 (14:55→22:30)
[2022-02-09] MEDS: MORPHINE 2 MG/ML CARPUJECT IVP PRN ×2 (17:03→23:59)
[2022-02-09] MEDS: ACETAMINOPHEN 650 MG SUPP PR SCH ×2 (17:03→22:31)
[2022-02-10] MEDS: MORPHINE 2 MG/ML CARPUJECT IVP SCH ×2 (03:05→06:41)
[2022-02-10] MEDS: ACETAMINOPHEN 650 MG SUPP PR SCH (03:12)
--- NOTE | 2022-02-10 08:14 | DISCHARGE SUMMARY ---
Discharge Summary Admit Date: 02/09/22 Discharge Date: 02/10/22 Discharge Disposition: 20 - DIAGNOSES Admission Diagnoses: Acute bilateral Health care associated pneumonia Atrial fibrillation with RVR NSTEMI in the setting of CAD Hypernatremia Discharge Diagnoses with Status of Each Condition: Acute bilateral Health care associated pneumonia Atrial fibrillation with RVR NSTEMI in the setting of CAD Hypernatremia - HPI History of Present Illness: Pt resides at [facility]. He was brought to the ED several days ago and dx'd w/UTI for which he was given Keflex. He had been doing okay until 02/08/22, at which time he developed decreased LOC and fever. He was brought to the ED where he was found to have evidence of bilateral pneumonia, a fib w/RVR, hypernatremia, NSTEMI and possible punctate focus of cerebral petechiae. He was admitted to the hospitalist service. At the time of admission, son (ANDREZ) advised his dad would not want IVFs or other interventions. On the morning of 02/09/22, son requested hospice care. He was discharged from the hospitalist service and admitted under [facility] level of hospice care for management of dyspnea, pain, and fever. - HOSPITAL COURSE Hospital Course: Patient was admitted under hospice [facility] level of care. He was initiated on scheduled IV morphine and rectal tylenol to manage dyspnea and fever. He required additional IV morphine PRN and received IV lorazepam. He continued to decline and was reported to have at 0659 on 02/10/22. Family notified by hospital staff and hospice/home health aide. - ALLERGIES Allergies/Adverse Reactions: Allergies Allergy/AdvReac Type Severity Reaction Status Date / Time No Known Drug Allergies Allergy Verified 02/06/22 17:54 - MEDICATIONS Home Medications: Ambulatory Orders Medication Instructions Recorded Confirmed Morphine Oral Soln [Roxanol] 5 mg PO Q2HR PRN #30 ml 02/09/22
== END 2022-02-10 06:59 | disposition expired | DRG 951 ==
LOC: MS2 13:03
PROVIDERS: ADMIT Family Medicine; ATTEND Family Medicine
DX: Z51.5 Encounter for palliative care (principal); J18.9 Pneumonia, unspecified organism; I21.4 Non-ST elevation (NSTEMI) myocardial infarction; E87.0 Hyperosmolality and hypernatremia; N39.0 Urinary tract infection, site not specified; I25.10 Atherosclerotic heart disease of native coronary artery without angina pectoris; I48.91 Unspecified atrial fibrillation; D53.9 Nutritional anemia, unspecified; D69.6 Thrombocytopenia, unspecified; F03.90 Unspecified dementia, unspecified severity, without behavioral disturbance, psychotic disturbance, mood disturbance, and anxiety; R79.89 Other specified abnormal findings of blood chemistry; Z95.1 Presence of aortocoronary bypass graft
CPT/HCPCS: A9270; J2060